=== PATIENT | female | born 1945 | race Caucasian/White ===

== ENCOUNTER 2023-06-29 10:37 | Emergency (ER) | payer MEDICARE, OTHER, SELFPAY ==
[2023-06-29 11:03] VITALS: BP 157/98
[2023-06-29 12:53] VITALS: BP 111/97
[2023-06-29 13:04] LABS: % Basophils 0.5 % (0-2); % Immature Granulocytes 0.2 % (0-0.5); % Monocytes 5.9 % (1.7-9.3); % Neutrophils 56.4 % (42.2-75.2); Absolute Eosinophils 0.1 10^3/uL (0-0.7); Absolute Lymphocytes 2.3 10^3/uL (1.2-3.4); Absolute Monocytes 0.4 10^3/uL (0.1-0.6); Absolute Neutrophils 3.7 10^3/uL (1.4-6.5); Hematocrit 41.2 % (37.0-47.0); Hemoglobin 14.2 g/dL (12.0-16.0); Mean Corp Hgb Conc. 34.5 g/dL (33.0-37.0); Mean Corpuscular Hgb 28.8 pg (27.0-31.0); Mean Corpuscular Volume 83.6 fL (81.0-99.0); Mean Platelet Volume 9.1 fL (7.4-10.4); Nucleated Red Blood Cells % 0 %; Platelet Count 270 10^3/uL (130-400); Red Blood Cell Count 4.93 10^6/uL (4.20-5.40); Red Cell Dist. Width 13.8 % (11.5-14.5); White Blood Cell Count 6.6 10^3/uL (4.8-10.8)
[2023-06-29 13:18] LABS: D-Dimer 0.38 ug/mlFEU (0.00-0.50)
[2023-06-29] MEDS: DUONEB 3 ML INH (13:53)
[2023-06-29 13:59] VITALS: BP 138/76
[2023-06-29 14:00] VITALS: BP 138/81
--- NOTE | 2023-06-29 14:09 | ED.GENMED ---
History of Present Illness
General
Chief Complaint: Breathing Problem
Source: patient
Exam Limitations: none
Time Seen by Provider: 06/29/23 11:37
Nursing documentation reviewed up to this point in time: agreed with
Travel History
Have you had any contact with someone who has COVID-19?: No
Do you have any symptoms of coronavirus? Fever > 100 degrees, chills, cough, shortness of breath, sore throat, loss of taste or smell, muscle aches, or headache?: No
History of Present Illness
History of Present Illness:
pt is a 77 y/o F with h/o heart murmur, HLD, asthma
here with cough/congestion - from urgent care
apparently 1 mo ago started with righ tear pain/pressure and sinus congestion that she saw her PCP for. she was prescribed 10 days amoxicillin tid which she took
she was given a refill 'for if the symptoms lingered' so she continued another 14 days and she is almost done
she says that she has [facility] an dfeels a little wheezy
she has used her albuterol inhaler in addition to her advair. pt says at 2 am she was woken up by a feeling of discomfort in between her shoulder blades. she took motrin and used he inhaler and got up and got some water and was able to get back
to sleep. when she woke up today she thought she should go to urgent care.
pt was sent here for eval from urgent care for her sob.
pt says she doesn't feel SOB at rest and has not had any pleurtic pain, syncope, exertional cp, vomiting, diarrhea, fever, chills.
she has a dry cough, no mucus
nonsmoker
Past History
Past History
ED Past Medical History: Other (Asthma, GERD, hyperlipidemia, hypothyroidism on replacement previous skin cancer with resection,)
Social History
Tobacco: Non-smoker
Alcohol: None
Family History
Family History: Early CAD and Other (Mother with bladder cancer, brother with heart transplant)
Review of Systems
Review of Systems
Allergies reviewed?: Yes
All Other Systems: Not applicable
Phy Exam
Physical Exam
Physical Exam:
GENERAL: Alert , in no apparent distress
EYE: pupils equal and reactive
NECK: Supple
ENT: o/p clr, mmm.
CARDIAC: Regular rate and rhythm .+ murmur systolic no edema
LUNGS: moving good air, no tachypnea, occ cough, slight end exp wheezing;
ABDOMEN: Soft, without focal tenderness, no r/g, no cvat, normal bowel sounds
NEUROLOGICAL: Alert and oriented, no focal neuro deficits
SKIN: Warm and dry, skin intact.
MUSCULOSKELETAL: No edema, well perfused. neg brian's sign
PSYCH: Normal and appropriate interaction.
Scores
Heart Failure Risk
Heart Failure Risk Score: Not Applicable
Course
Orders/Labs/Results
Orders:
Orders
06/29/23 12:17
Electrocardiogram (*1) Urgent
Reason for Study: Shortness of Breath
EKG- Treatment ONCE
06/29/23 12:35
Cardiac Monitoring- Treatment ONCE
Ipratropium/Albuterol Sulfate [Duoneb] 3 ml INH R NOW ONE
CR Chest - 2 Views Urgent
Comment:
Reason For Exam: cough, back pain, sob
06/29/23 12:53
Complete Blood Count/With Diff Urgent
D-Dimer Urgent
06/29/23 14:01
Comprehensive Metabolic Panel Urgent
NT-proBNP Urgent
Troponin I Urgent
Abnormal Lab Results
06/29/23
14:01
Glucose 102 H mg/dl
(70-99)
06/29/23 12:53
06/29/23 14:01
Vital Signs
Initial and Last Documented VS:
Initial Vital Signs
Temp Pulse Resp BP Pulse Ox
98.6 F 110 18 157/98 96
06/29/23 11:03 06/29/23 11:03 06/29/23 11:03 06/29/23 11:03 06/29/23 11:03
Last Documented Vital Signs
Temp Pulse Resp BP Pulse Ox
98.6 F 75 19 123/85 94
06/29/23 11:03 06/29/23 13:59 06/29/23 13:59 06/29/23 15:13 06/29/23 15:15
MDM/Problems Addressed
Differential Diagnosis Includes:
asthma exac, bronchitis, chf, PE, pna
MDM/Problems Addressed:
77 y/o F with ongoin gsinus congestion and now with cough, despite nearly 1 mo of amox
sent by urgent care for her c/o SOB and wheezing
has been using inahler without relief
no fever/chills, chest pain
w/u here cxr independently reviewed by me and no PNA
pt's sypmtoms improved after nebs and steroids
she was sent home with a home neb machine
acute exac of asthma was stabilized for d/c
return precautions.
*Critical Care Note
Total Time (30-74mins, 75-104mins- exclusive of procedures): Not Applicable
ED Attending Note
-
Portions of this chart may have been created with voice recognition software.� Occasional wrong word or��sound alike� substitutions may have occurred due to the inherent limitations of voice recognition software.
Discharge Plan
Departure
Patient Disposition: Home (Routine Discharge)
Date of Disposition: 06/29/23
Time of Disposition: 14:50
Patient with high blood pressure during this ER visit?: No
Condition: Fair
Covid-19: Not Applicable
Discharge Problem:
Asthma, Acute bronchitis
Instructions: Asthma, Adult (DC), Acute Bronchitis, Adult (DC)
Prescriptions:
New
albuterol sulfate 2.5 mg /3 mL (0.083 %) solution for nebulization
2.5 mg inhalation QID PRN (Reason: shortness of breath or wheezing) Qty: 75 0RF
methylprednisolone [Medrol (Vahe)] 4 mg tablets,dose pack
See Rx Instructions .ROUTE .COMPLEX Qty: 21 0RF
Rx Instructions:
for 6 days
No Action
Albuterol
inhalation PRN PRN (Reason: rescue)
Patient Comments:
3-4 days ago
atorvastatin 40 MG tablet
40 mg PO DAILY
levothyroxine [Synthroid] 25 MCG tablet
25 mcg PO DAILY
esomeprazole magnesium [Nexium] 40 MG capsule,delayed release(DR/EC)
40 mg PO DAILY
fluticasone propion-salmeterol 1 DISK blister with device
1 puff inhalation BID
fluticasone propionate 16 GRAM spray,suspension
2 spray intranasal DAILY
ew-bjx-KL-Mp-Lw-znahipf-lutein 1 EACH tablet
1 tab PO DAILY
omega-3 fatty acids-fish oil [Fish Oil] 1,000 MG capsule
1,200 mg PO DAILY
amoxicillin 500 MG capsule
500 mg PO Q8H Qty: 21 0RF
Referrals:
Kiya Simms PA [Family Provider] - Follow up in 2-3 days
Activity Restrictions/Additional Instructions:
WE DO NOT SEE ANY CAUSE FOR EMERGENCY FOR YOUR SYPMTOMS
YOU COULD JUST HAVE A FLARE UP OF YOUR ASTHMA
YOU SHOULD SEE A ANODE MACHINE OPERATOR AND AN ENT FOR YOUR ONGOING SYMPTOMS
TRY ALBUTEROL NEBULIZER EVERY 6 HOURS NEEDED FOR WHEEZING/COUGH (DO NOT USE YOUR ALBUTEROL INHALER WHILE USING THE NEBULIZER). YOU CAN CONTINUE THE ADVAIR
STARTING TOMORROW MORNING TRY TAKING THE MEDROL DOSE VAHE PRESCRIBED
THIS IS A STEROID TAPER. IT SHOULD HELP WITH YOUR CONGESTION AND YOUR LUGNS.
FOLLOW UP WITH [facility] FAMILY DOCTOR THIS WEEK
RETURN FOR: WORSENING CHEST PAIN, SHORTNESS OF BREATH, PASSING OUT, HIGH FEVER, VOMITING OR ANY CONCERNS.
Interventions
Interventions:
*Risk Screen - Suicide Last Done: 06/29/23 12:39
*General Assessment Last Done: 06/29/23 12:39
*Neglect/Abuse Screening Last Done: 06/29/23 12:39
ED- Fall Risk Assessment Last Done: 06/29/23 15:23
*ED COVID-19 Vaccine History Last Done: 06/29/23 11:03
*Nursing Disposition Last Done: 06/29/23 15:23
ED- Cardiac Assessment Last Done: 06/29/23 12:39
ED- Pulmonary Assessment Last Done: 06/29/23 12:39
Discharge Date and Time
Discharge Date/Time: 06/29/23 15:24
[2023-06-29 14:25] LABS: ALT (SGPT) 29 U/L (0-35); AST (SGOT) 29 U/L (14-36); Albumin 3.9 g/dl (3.5-5.0); Alkaline Phosphatase 55 U/L (38-126); Blood Urea Nitrogen 13 mg/dl (7-17); Calcium 9.2 mg/dl (8.4-10.2); Carbon Dioxide 29 mmol/L (22-30); Chloride 101 mmol/L (98-107); Glucose 102 mg/dl (70-99); Potassium 4.5 mmol/L (3.5-5.1); Sodium 138 mmol/L (135-145); Total Bilirubin 0.8 mg/dl (0.2-1.3); Total Protein 6.9 g/dl (6.3-8.2); eGFR > 60.00
[2023-06-29 14:35] LABS: NT-proBNP < 20.0 pg/ml; Troponin I < 0.012 ng/ml
[2023-06-29 15:00] VITALS: BP 140/83
[2023-06-29 15:13] VITALS: BP 123/85
== END 2023-06-29 15:24 | disposition home or self-care (01) ==
LOC: EMR 10:37
PROVIDERS: Physician Assistant; EMERGENCY PHYSICIAN Emergency Medicine; FAMILY PHYSICIAN Physician Assistant
DX: J45.909 Unspecified asthma, uncomplicated (principal); R01.1 Cardiac murmur, unspecified; E78.00 Pure hypercholesterolemia, unspecified; K21.9 Gastro-esophageal reflux disease without esophagitis; E03.9 Hypothyroidism, unspecified
CPT/HCPCS: 99283; 94640; 71046; 80053; 83880; 84484; 85025; 85379; 93005

== ENCOUNTER → 2023-07-14 13:28 | Outpatient (REF) | payer MEDICARE, OTHER, SELFPAY | LOC: WDC 13:28 | PROVIDERS: ATTENDING PHYSICIAN Physician Assistant | DX: Z12.31 Encounter for screening mammogram for malignant neoplasm of breast (principal) | CPT/HCPCS: 77063; 77067 ==

== ENCOUNTER → 2023-08-11 08:38 | Outpatient (REF) | payer MEDICARE, OTHER, SELFPAY ==
[2023-08-11 09:44] LABS: % Basophils 0.6 % (0-2); % Eosinophils 2.9 % (0-6); % Immature Granulocytes 0.2 % (0-0.5); % Lymphocytes 36.8 % (20.5-51.1); % Monocytes 6.7 % (1.7-9.3); % Neutrophils 52.8 % (42.2-75.2); Absolute Basophils 0.1 10^3/uL (0-0.2); Absolute Eosinophils 0.2 10^3/uL (0-0.7); Absolute Monocytes 0.6 10^3/uL (0.1-0.6); Absolute Neutrophils 4.4 10^3/uL (1.4-6.5); Hematocrit 40.5 % (37.0-47.0); Hemoglobin 13.8 g/dL (12.0-16.0); Mean Corp Hgb Conc. 34.1 g/dL (33.0-37.0); Mean Corpuscular Hgb 28.7 pg (27.0-31.0); Mean Corpuscular Volume 84.2 fL (81.0-99.0); Mean Platelet Volume 9.3 fL (7.4-10.4); Nucleated Red Blood Cells % 0 %; Platelet Count 274 10^3/uL (130-400); Red Blood Cell Count 4.81 10^6/uL (4.20-5.40); Red Cell Dist. Width 14.2 % (11.5-14.5); White Blood Cell Count 8.3 10^3/uL (4.8-10.8)
[2023-08-11 10:15] LABS: ALT (SGPT) 28 U/L (0-35); AST (SGOT) 30 U/L (14-36); Albumin 4.7 g/dl (3.5-5.0); Alkaline Phosphatase 56 U/L (38-126); Blood Urea Nitrogen 13 mg/dl (7-17); Calcium 9.7 mg/dl (8.4-10.2); Carbon Dioxide 26 mmol/L (22-30); Chloride 101 mmol/L (98-107); Glucose 127 mg/dl (70-99); HDL Cholesterol 59 mg/dl; LDL Cholesterol, Calculated 136 mg/dl; Potassium 4.4 mmol/L (3.5-5.1); Sodium 140 mmol/L (135-145); Total Bilirubin 0.7 mg/dl (0.2-1.3); Total Cholesterol 231 mg/dl (50-199); Total Protein 7.6 g/dl (6.3-8.2); Triglyceride 180 mg/dl (10-149); Very Low Density Lipoprotein 36 mg/dl (0-30); eGFR > 60.00
[2023-08-11 10:31] LABS: Vitamin D, 25-OH*** 43.3 ng/mL (30-80)
[2023-08-11 10:45] LABS: TSH Reflex To Free T4 2.64 uIU/ml (0.47-4.68)
[2023-08-11 12:16] LABS: Glycohemoglobin (HgbA1c) 6.1 % (4.0-5.6)
== END ==
LOC: REG 08:38
PROVIDERS: ATTENDING PHYSICIAN Physician Assistant; FAMILY PHYSICIAN Internal Medicine Rheumatology
DX: Z00.00 Encounter for general adult medical examination without abnormal findings (principal); H69.93 Unspecified Eustachian tube disorder, bilateral; H60.391 Other infective otitis externa, right ear; J45.40 Moderate persistent asthma, uncomplicated; E03.9 Hypothyroidism, unspecified; M81.0 Age-related osteoporosis without current pathological fracture; E78.2 Mixed hyperlipidemia; E55.9 Vitamin D deficiency, unspecified; R82.994 Hypercalciuria; Z79.899 Other long term (current) drug therapy; R73.9 Hyperglycemia, unspecified
CPT/HCPCS: 36415; 80053; 80061; 82306; 83036; 84443; 85025

== ENCOUNTER → 2023-08-13 09:15 | Outpatient (REF) | payer MEDICARE, OTHER, SELFPAY ==
[2023-08-13 11:52] LABS: 24 Hour Urine Total Volume 1900 ml
== END ==
LOC: REG 09:15
PROVIDERS: ATTENDING PHYSICIAN Internal Medicine Rheumatology; FAMILY PHYSICIAN Physician Assistant
DX: E55.9 Vitamin D deficiency, unspecified (principal); M81.0 Age-related osteoporosis without current pathological fracture; R82.994 Hypercalciuria
CPT/HCPCS: 81050; 82340

== ENCOUNTER → 2024-01-23 11:04 | Outpatient (REF) | payer MEDICARE, OTHER, SELFPAY | LOC: RAD 11:04 | PROVIDERS: ATTENDING PHYSICIAN Internal Medicine Rheumatology; FAMILY PHYSICIAN Physician Assistant | DX: Z13.820 Encounter for screening for osteoporosis (principal); M81.0 Age-related osteoporosis without current pathological fracture | CPT/HCPCS: 77080 ==

== ENCOUNTER → 2024-01-27 09:07 | Outpatient (REF) | payer MEDICARE, OTHER, SELFPAY ==
[2024-01-27 10:55] LABS: ALT (SGPT) 40 U/L (0-35); AST (SGOT) 39 U/L (14-36); Albumin 4.8 g/dl (3.5-5.0); Alkaline Phosphatase 51 U/L (38-126); Blood Urea Nitrogen 15 mg/dl (7-17); Calcium 9.7 mg/dl (8.4-10.2); Carbon Dioxide 27 mmol/L (22-30); Chloride 100 mmol/L (98-107); Glucose 113 mg/dl (70-99); HDL Cholesterol 53 mg/dl; LDL Cholesterol, Calculated 232 mg/dl; Potassium 4.8 mmol/L (3.5-5.1); Sodium 141 mmol/L (135-145); Total Bilirubin 0.7 mg/dl (0.2-1.3); Total Cholesterol 323 mg/dl (50-199); Total Protein 7.6 g/dl (6.3-8.2); Triglyceride 190 mg/dl (10-149); Very Low Density Lipoprotein 38 mg/dl (0-30); eGFR > 60.00
[2024-01-27 11:10] LABS: Vitamin D, 25-OH*** 49.5 ng/mL (30-80)
[2024-01-27 11:14] LABS: Glycohemoglobin (HgbA1c) 5.9 % (4.0-5.6)
[2024-01-27 11:24] LABS: TSH Reflex To Free T4 2.85 uIU/ml (0.47-4.68)
== END ==
LOC: REG 09:07
PROVIDERS: ATTENDING PHYSICIAN Internal Medicine Rheumatology; FAMILY PHYSICIAN Physician Assistant; REFERRING PHYSICIAN Obstetrics & Gynecology Gynecology
DX: E55.9 Vitamin D deficiency, unspecified (principal); M81.0 Age-related osteoporosis without current pathological fracture; Z79.899 Other long term (current) drug therapy; E78.2 Mixed hyperlipidemia; R73.9 Hyperglycemia, unspecified; J45.40 Moderate persistent asthma, uncomplicated
CPT/HCPCS: 36415; 80053; 80061; 82306; 83036; 84443

== ENCOUNTER → 2024-03-03 16:00 | Outpatient (REF) | payer MEDICARE, OTHER, SELFPAY | LOC: RCS 16:00 | PROVIDERS: ATTENDING PHYSICIAN Physician Assistant | DX: R01.1 Cardiac murmur, unspecified (principal) | CPT/HCPCS: 93306 ==

== ENCOUNTER → 2024-07-07 07:53 | Outpatient (REF) | payer MEDICARE, OTHER, SELFPAY ==
[2024-07-07 10:44] LABS: ALT (SGPT) 19 U/L (0-35); AST (SGOT) 22 U/L (14-36); Albumin 4.5 g/dl (3.5-5.0); Alkaline Phosphatase 58 U/L (38-126); Blood Urea Nitrogen 15 mg/dl (7-17); Calcium 9.9 mg/dl (8.4-10.2); Carbon Dioxide 31 mmol/L (22-30); Chloride 101 mmol/L (98-107); Glucose 117 mg/dl (70-99); HDL Cholesterol 54 mg/dl; LDL Cholesterol, Calculated 114 mg/dl; Potassium 4.8 mmol/L (3.5-5.1); Sodium 139 mmol/L (135-145); Total Bilirubin 0.6 mg/dl (0.2-1.3); Total Cholesterol 204 mg/dl (50-199); Total Protein 7.5 g/dl (6.3-8.2); Triglyceride 184 mg/dl (10-149); Very Low Density Lipoprotein 36 mg/dl (0-30); eGFR > 60.00
== END ==
LOC: REG 07:53
PROVIDERS: ATTENDING PHYSICIAN Physician Assistant
DX: E78.2 Mixed hyperlipidemia (principal)
CPT/HCPCS: 36415; 80053; 80061

== ENCOUNTER → 2024-07-12 07:33 | Outpatient (REF) | payer MEDICARE, OTHER, SELFPAY ==
[2024-07-12] MEDS: LEXISCAN 0.4 MG IV (09:41)
== END ==
LOC: RCS 07:33
PROVIDERS: ATTENDING PHYSICIAN Internal Medicine; FAMILY PHYSICIAN Physician Assistant
DX: R06.02 Shortness of breath (principal)
CPT/HCPCS: 78452; 93017; A9500; J2785

== ENCOUNTER 2024-09-10 01:26 | Inpatient (IN) | payer MEDICARE, OTHER, SELFPAY ==
[2024-09-09 17:54] VITALS: BP 135/79
[2024-09-09 20:00] VITALS: BP 144/77
[2024-09-09] MEDS: OMNIPAQUE 50 ML PO (20:31)
[2024-09-09 20:36] VITALS: BMI 28.3
--- NOTE | 2024-09-09 20:42 | ED.GENMED ---
History of Present Illness
General
Chief Complaint: Abnormal Lab Value
Time Seen by Provider: 09/09/24 19:40
History of Present Illness
History of Present Illness:
78-year-old female with history of hyperlipidemia, hypertension presenting to the emergency department for jaundice and abnormal outpatient labs. Patient reports last week she was having abdominal discomfort with ultimate suspicion for colitis.
Notes that she has had colitis in the past. She also then had a dental infection, was prescribed antibiotics. On Friday, 4 days ago she was having increased generalized abdominal pain, now constipation. Few days ago, she noticed that her skin was
yellowing and her eyes were yellow. She followed up with her doctor who blood work, noted to be abnormal with elevated liver enzymes, lipase, T. bili. She reports some mild abdominal discomfort. Denies vomiting, does note some nausea. Denies
chest pain or difficulty breathing. Denies fever. Denies any history abdominal surgeries in the past. Denies additional acute medical complaints
Past History
Past History
ED Past Medical History: Other (Asthma, GERD, hyperlipidemia, hypothyroidism on replacement previous skin cancer with resection,)
Social History
Tobacco: Non-smoker
Alcohol: None
Family History
Family History: Early CAD and Other (Mother with bladder cancer, brother with heart transplant)
Phy Exam
Physical Exam
Physical Exam:
General: Well-appearing, no clinical signs of dehydration, nontoxic and in no acute distress
HEENT: protecting airway, scleral icterus
Neck: appears supple
CV: Normal heart rate, regular rhythm
Resp: No accessory muscle use, no increased work of breathing
Abd: Soft and non-distended, very mild generalized nonfocal tenderness, no rebound or guarding
Extremities: No deformities, no swelling
Neuro: alert, no focal neurologic deficit
: deferred
Rectal: deferred
Psych: Normal affect
Skin: Jaundice
Course
Orders/Labs/Results
Orders:
Orders
09/09/24 17:58
Electrocardiogram (*1) Urgent
Reason for Study: Fatigue / Weakness
09/09/24 17:59
EKG- Treatment ONCE
09/09/24 20:00
Iohexol [Omnipaque] See Protocol PO NOW STA
09/09/24 20:01
CT Abd/pel W Iv And Oral Contr Urgent
Comment:
Reason For Exam: jaundice, elevated liver enzymes and lipase
09/09/24 20:34
Acetaminophen Urgent
Hepatitis A IgM Antibody Urgent
Hepatitis B Core Ab, IgM Urgent
Hepatitis B Surface Antibody Urgent
Hepatitis B Surface Antigen Urgent
Hepatitis C Antibody Urgent
Urinalysis Reflex To Culture Urgent
Date Specimen was Collected: 09/09/24
Time Specimen was Collected: 20:29
Urine Microscopic Reflex Cult Urgent
Urine Culture Urgent
KELY Source: U
Specimen Description:
Date Specimen was Collected: 09/09/24
Time Specimen was Collected: 20:29
Abnormal Lab Results
09/09/24
20:34
Ur Occult Blood Reflex 2+ A
(Negative)
Urine Nitrite (Reflex) Positive A
(Negative)
Urine Bilirubin 3+ A
(Negative)
Urine Urobilinogen 2+ A
(Neg - 1+)
Leukocyte Esterase Rfl 3+ A
(Negative)
Urine RBC 11-15 A /HPF
(0-2)
Urine WBC (Reflex) 50-60 A /HPF
(0-5)
Urine Bacteria (Reflex) Moderate A
(Negative)
Urine Albumin (Reflex) 2+ A
(Neg - Trace)
Acetaminophen < 10 L ug/ml
(10-30)
Vital Signs
Initial and Last Documented VS:
Initial Vital Signs
Temp Pulse Resp BP Pulse Ox
98.7 F 113 18 135/79 96
09/09/24 17:54 09/09/24 17:54 09/09/24 17:54 09/09/24 17:54 09/09/24 17:54
Last Documented Vital Signs
Temp Pulse Resp BP Pulse Ox
98.1 F 79 21 142/80 95
09/09/24 21:52 09/09/24 23:22 09/09/24 23:22 09/09/24 22:00 09/09/24 22:30
MDM/Problems Addressed
MDM/Problems Addressed:
78-year-old female presenting to the emergency department with outpatient abnormal laboratory analysis with elevated liver enzymes, lipase, T. bili. Vital arrival are normal.
On exam, patient is resting comfortably, no acute distress. Patient reports she had colitis over a week ago and is now having these findings. Labs reviewed, transaminitis, T. bili of 9 and elevated lipase. Very minimal tenderness to the abdomen.
Ultimately suspect possible viral hepatitis versus biliary pathology versus gallstone pancreatitis versus pancreatic cancer. Plan for CT abdominal imaging. Patient denying any acetaminophen usage. Will send hepatitis panel and Tylenol level.
00:10 -CT shows concern for mass at the head of the pancreas, indicating likely pancreatic adenocarcinoma. There is intrahepatic and extrahepatic biliary ductal obstruction. This reason feel patient warrants admission for GI consultation,
additional imaging and likely oncology follow-up.
*EKG
Interpreted by ED Provider?: Yes
EKG Intrepretation Date: 09/09/24
EKG Intrepretation Time: 20:45
*Critical Care Note
Total Time (30-74mins, 75-104mins- exclusive of procedures): Not Applicable
ED Attending Note
-
Portions of this chart may have been created with voice recognition software.� Occasional wrong word or��sound alike� substitutions may have occurred due to the inherent limitations of voice recognition software.
Discharge Plan
Departure
Prescriptions:
No Action
sabgdmgm-yuwvmqcl-UT Drops,Suspension
4 drp OTIC (EAR) TIDPRN PRN (Reason: allergies)
omeprazole 40 mg Capsule,Delayed Release(Dr/Ec)
40 mg PO DAILY
levothyroxine [Synthroid] 50 mcg Tablet
50 mcg PO DAILY
losartan 25 mg Tablet
25 mg PO DAILY
rosuvastatin [Crestor] 40 mg Tablet
40 mg PO QPM
Theragen Tablet
1 tab PO DAILY
fluticasone propion-salmeterol [Advair Diskus] 100-50 mcg/dose Blister With Device
1 inh INHALATION R BID
albuterol sulfate [ProAir HFA] 90 mcg/actuation Hfa Aerosol Inhaler
2 puff INHALATION R Q6HPRN PRN (Reason: sob)
cholecalciferol (vitamin D3) [Vitamin D3] 25 mcg (1,000 unit) Tablet
25 mcg PO DAILY
coQ10 (ubiquinol) 100 mg Capsule
100 mg PO DAILY
albuterol sulfate 2.5 mg /3 mL (0.083 %) Solution For Nebulization
2.5 mg INHALATION R Q4HPRN PRN (Reason: sob)
Referrals:
Kiya Simms PA [Family Provider] -
Interventions
Interventions:
*Risk Screen - Suicide Last Done: 09/09/24 17:54
*General Assessment Last Done: 09/09/24 17:54
*Neglect/Abuse Screening Last Done: 09/09/24 17:54
*ED- Fall Risk Assessment Last Done: 09/09/24 19:45
*ED COVID-19 Vaccine History Last Done: 09/09/24 19:45
Discharge Date and Time
Print Language: TURKMEN
[2024-09-09 20:45] LABS: Urine Albumin 2+ (Neg - Trace); Urine Bilirubin 3+ (Negative); Urine Character Clear (Clear); Urine Color Yellow; Urine Glucose Negative (Negative); Urine Ketone Negative (Negative); Urine Leukocyte 3+ (Negative); Urine Nitrite Positive (Negative); Urine Occult Blood 2+ (Negative); Urine Specific Gravity 1.015 (<1.030); Urine Urobilinogen 2+ (Neg - 1+)
[2024-09-09 21:00] VITALS: BP 163/81
[2024-09-09 21:05] LABS: Acetaminophen < 10 ug/ml (10-30)
[2024-09-09 21:10] LABS: Urine Bacteria Moderate (Negative); Urine Calcium Oxalate Crystals Present; Urine White Cell 50-60 /HPF (0-5)
[2024-09-09 21:39] LABS: Hepatitis B Surface Antigen Negative (Negative)
[2024-09-09 21:43] LABS: Hepatitis A IgM Antibody Negative (Negative); Hepatitis B Core Ab, IgM Negative (Negative)
[2024-09-09 21:56] LABS: Hepatitis B Surface Antibody Negative; Hepatitis C Antibody Negative (Negative)
[2024-09-09 22:00] VITALS: BP 142/80
--- NOTE | 2024-09-10 01:03 | HPS.HSE ---
Family Physician
-
Family Physician: BERNY Teague
Chief Complaint
-
Jaundice
History of Present Illness
Patient is a 78y F with PMH significant for hypertension, hypothyroidism and asthma who presents to ED for evaluation of jaundice and abnormal labs. Patient states that she developed a bout of 'colitis' about one week ago. She describes this as
crampy lower abdominal pain and mild nausea without emesis. She has loose, white-colored stools. Patient states that she had symptoms for about 2 days and they have since improved. She did not seek medical attention at that time. Patient notes
that she has had similar symptoms occasionally in the past and they typically resolve without intervention.
Patient notes that she has had intermittent upper abdominal discomfort and mid-back discomfort for the past several days.
She has had continued nausea though her stools have returned to normal.
Patient noted that she was very itchy and she noted that her eyes and skin appeared somewhat yellow.
She contacted her PCP and had labs done earlier today. She was called this evening and advised to present to the ED.
In the ED, patient continues to complain of nausea and upper abdominal discomfort.
Medical History
Past Medical History
Past Medical History: Reports Other
Additional Past Medical History:
Hypothyroidism
Asthma
GERD
Hypertension
Mild Aortic Stenosis
Osteoporosis
Non-Melanoma Skin Cancer
Past Surgical History: Reports Other
Additional Past Surgical History:
Tubal Ligation
Skin Cancer Excision
Social History
Tobacco: Non-smoker
Alcohol: None
Drug: None
Family History
Family History: Other (Mother: CAD, COPD Father: Aortic Aneurysm Sister: Aortic Aneurysm Brother: Pancreatic Cancer Brother: Throat Cancer)
Allergies / Home Medications
Allergies reflects when Allergies were last updated in [employer].
Home Medications with original date entered in [employer]
Allergy/Medication List:
Allergies
Allergy/AdvReac Type Severity Reaction Status Date / Time
cats, dogs, grass, trees, Allergy Pharmacy Uncoded 09/09/24 17:53
etc. to Review
Home Medications
albuterol sulfate 2.5 mg/3 mL (0.083 %) solution for nebulization 2.5 mg inhalation R Q4HPRN PRN sob 09/09/24
albuterol sulfate 90 mcg/actuation aerosol inhaler 2 puff inhalation R Q6HPRN PRN sob 09/09/24
cholecalciferol (vitamin D3) 25 mcg (1,000 unit) tablet (Vitamin D3) 25 mcg PO DAILY 09/09/24
coQ10 (ubiquinol) 100 mg capsule 100 mg PO DAILY 09/09/24
fluticasone 100 mcg-salmeterol 50 mcg/dose blistr powdr for inhalation (Advair Diskus) 1 inh inhalation R BID 09/09/24
levothyroxine 50 mcg tablet (Synthroid) 50 mcg PO DAILY 09/09/24
losartan 25 mg tablet 25 mg PO DAILY 09/09/24
oqsqmses-lhrvnmpx-SV ear drops,suspension 4 drp otic (ear) TIDPRN PRN allergies 09/09/24
omeprazole 40 mg capsule,delayed release 40 mg PO DAILY 09/09/24
rosuvastatin 40 mg tablet (Crestor) 40 mg PO QPM 09/09/24
therapeutic multivitamin 1 tab PO DAILY 09/09/24
Review of Systems
-
History Source: Patient
A 12 point ROS was completed and negative except as noted: Yes
Constitutional: Reports Weight Loss and Fatigue; Denies Fever or Chills
EENT: Denies Sore Throat
Respiratory: Denies Cough or Trouble Breathing
Cardiac: Denies Chest Pain or Palpitations
Abdomen/GI: Reports Abdominal Pain, Nausea and Anorexia; Denies Vomiting, Diarrhea, Constipated, Bloody Stools or Black Stools
: Denies Dysuria or Frequency
Musculoskeletal: Reports Other (Back Pain); Denies Joint Pain or Edema
Neurological: Denies Dizzy or Headache
Psych: Denies Depression or Anxiety
Physical Exam
Vital Signs
Vital Signs
Temp Pulse Resp BP Pulse Ox
98.1 F 79 21 142/80 95
09/09/24 21:52 09/09/24 23:22 09/09/24 23:22 09/09/24 22:00 09/09/24 22:30
Physical Exam
General: Other (78y F in no acute distress. Grossly jaundiced.)
HEENT: Other (Scleral icterus. MMM.)
Respiratory: Clear; No Wheezes, Rales or Rhonchi
Cardiac: S1/S2, Regular Rhythm and Murmur (II/ EHSAN)
GI: Soft, Non Distended, Normal Bowel Sounds and Other (Pos upper abdominal tenderness without rebound / guarding.)
Musculoskeletal: No Clubbing, No Cyanosis and No Edema
Neuro: AO x 3
Impression/Plan
-
A/P: Patient is a 78y F with PMH significant for asthma and GERD who presents to ED for evaluation of gross jaundice and abnormal labs.
Pancreatic Mass
Jaundice
Abnormal LFTs
- Admit for further evaluation and treatment.
- CT done in the ED this evening shows 2.5cm pancreatic head mass with associated ductal dilation. Possible hepatic lesions and adenopathy.
- GI and Oncology evaluations.
- Check tumor markers for baseline.
- Supportive care / symptom control for pain and nausea.
- Follow for any new / worsening symptoms.
Benign Hypertension
- Stable. Continue losartan.
Hypothyroidism
- Stable. Continue current T4 replacement.
Moderate Persistent Asthma without Acute Exacerbation
- Stable. Albuterol nebs PRN.
DVT Prophylaxis: SCDs
Code Status: Full
[2024-09-10] MEDS: DILAUDID 0.5 MG IV (01:32)
[2024-09-10] MEDS: ZOFRAN 4 MG IV (01:32)
[2024-09-10 02:14] VITALS: BP 116/86; BMI 27.1
--- NOTE | 2024-09-10 03:04 | PTCARENOTE ---
Pt walked to room from stretcher upon arrival to unit. On arrival to unit Pt 98% on 4L of O2. Pt weaned down to 2L O2, sating 95%. Pt AAOx3, VSS, no current c/o pain. Pt is oriented to room. Call carey is within reach. Plan of care ongoing.
[2024-09-10 06:00] VITALS: BMI 27.1
[2024-09-10] MEDS: SYNTHROID 50 MCG PO (06:11)
[2024-09-10 06:50] LABS: Mean Corp Hgb Conc. 34.3 g/dL (33.0-37.0); Mean Corpuscular Hgb 29.3 pg (27.0-31.0); Mean Corpuscular Volume 85.6 fL (81.0-99.0); Mean Platelet Volume 9.8 fL (7.4-10.4); Platelet Count 289 10^3/uL (130-400); Red Blood Cell Count 4.09 10^6/uL (4.20-5.40); Red Cell Dist. Width 14.6 % (11.5-14.5)
[2024-09-10] MEDS: ADVAIR HFA 45/21 MCG INHALER 2 PUFF INH ×2 (07:27→20:12)
--- NOTE | 2024-09-10 07:58 | W.PN.HOSP.TC ---
Today's Communication/Plan
-
Possible IR biopsy of liver lesions today
EUS/FNA/ERCP for stenting -- Dr. Phillips of GI would like to keep patient here until that procedure is done early next week
Assessment / Plan
Assessment / Plan
Physical Exam
General: Not in acute distress. Grossly jaundiced.
HEENT: Scleral icterus. Moist mucosal membranes.
Respiratory: Clear to Auscultation Bilaterally
Cardiac: S1/S2, Regular Rhythm and Murmur (II/ EHSAN)
GI: Soft, Non Distended, Normal Bowel Sounds and Other (Pos upper abdominal tenderness without rebound / guarding.)
Musculoskeletal: No Cyanosis and No Edema
Neuro: AAO x 3
Assessment/Plan
78 y/o female with past medical history significant for hypertension, hypothyroidism, GERD and asthma who presents to ED for evaluation of jaundice and abnormal labs. Patient stated that she developed a bout of 'colitis' about one week prior.
She described this as crampy lower abdominal pain and mild nausea without emesis; she had loose, white-colored stools -- patient stated that she had symptoms for about 2 days and symptoms have since improved. She did not seek medical attention at
that time. Patient noted that she has had similar symptoms occasionally in the past and they typically resolve without intervention.
Patient noted that she has had intermittent upper abdominal discomfort and mid-back discomfort for the several days prior to presentation; she has had continued nausea though her stools have returned to normal.
Patient noted that she was very itchy and she noted that her eyes and skin appeared somewhat yellow.
She contacted her PCP and had labs done earlier today, whose office sent patient to the emergency department.
In the ED, patient continues to complain of nausea and upper abdominal discomfort.
Pancreatic Mass
Jaundice
Abnormal LFTs
- CT done in the ED this evening shows 2.5cm pancreatic head mass with associated ductal dilation. Possible hepatic lesions and adenopathy.
- GI and Oncology evaluations.
- Check tumor markers for baseline CA 19-9
- Supportive care / symptom control for pain and nausea.
- Follow for any new / worsening symptoms.
- Oncology team spoke with patient and based on their discussion with the patient, mentioned that patient now wants to be DNR/DNI status
- Patient needs biopsies of the liver mets in order to stage and diagnose the patient -- Dr. Phlilips of GI requested to keep patient here to have EUS/ERCP/FNA done early next week
Benign Hypertension
- Stable. Continue losartan.
Hypothyroidism
- Stable. Continue current T4 replacement.
Moderate Persistent Asthma without Acute Exacerbation
Wheezing on Physical Exam
- Sees Dr. Hanks outpatient
- Stable. Albuterol nebs PRN for now
- Not in respiratory distress, on room air saturating oxygen well
DVT Prophylaxis: SCDs
Code Status: DNR/DNI (as confirmed on September 11, 2023 by oncology team -- they confirmed this with the patient)
Non billable note
Anticipated Discharge: > 48 hours
Subjective/Interval History
-
Date of Service: September 10, 2024
Patient was seen and examined. She denied any new symptoms or complaints.
Objective Data
-
Labs:
Laboratory Results
09/10/24
06:05
WBC 8.0
Hgb 12.0
Hct 35.0 L
Plt Count 289
Sodium Pending
Potassium Pending
Chloride Pending
Carbon Dioxide Pending
BUN Pending
Creatinine Pending
Glucose Pending
Calcium Pending
Total Bilirubin Pending
AST Pending
ALT Pending
Alkaline Phosphatase Pending
Vital Signs:
Vital Signs
Temp Pulse Resp BP Pulse Ox
97.9 F 66 18 116/86 98
09/10/24 02:14 09/10/24 07:33 09/10/24 07:33 09/10/24 02:14 09/10/24 07:33
[2024-09-10 08:00] VITALS: BP 115/64
[2024-09-10 09:00] LABS: ALT (SGPT) 341 U/L (0-35); AST (SGOT) 221 U/L (14-36); Albumin 4.1 g/dl (3.5-5.0); Alkaline Phosphatase 303 U/L (38-126); Blood Urea Nitrogen 13 mg/dl (7-17); Calcium 9.5 mg/dl (8.4-10.2); Carbon Dioxide 25 mmol/L (22-30); Chloride 100 mmol/L (98-107); Direct Bilirubin 7.6 mg/dl (0.0-0.4); Estimated Creatinine Clearance 66 ml/min; Glucose 171 mg/dl (70-99); Potassium 4.5 mmol/L (3.5-5.1); Sodium 137 mmol/L (135-145); Total Bilirubin 9.4 mg/dl (0.2-1.3); eGFR > 60.00
[2024-09-10 09:09] LABS: TSH Reflex To Free T4 3.19 uIU/ml (0.47-4.68)
[2024-09-10] MEDS: COZAAR 25 MG PO (09:50)
[2024-09-10] MEDS: NSS (PRESERVATIVE FREE) 10 ML IV (09:51)
[2024-09-10] MEDS: PROTONIX IV 40 MG IV (09:51)
--- NOTE | 2024-09-10 10:30 | CON.ONC ---
Documented by User: Ann Limon MD, Resident 09/10/24 13:39
Consultation
-
Date Consultation Requested: 09/10/24
Date Consultation Performed: 09/10/24
Performing Provider: Dr. Limon/Dr. Leo
Impression
Impression
Pancreatic mass-- CT findings concerning for adenocarcinoma with metastatic intrahepatic lesion and adenopathy
Obstructive jaundice
CT abd/pelvis 09/09/24:
2.7 cm mass in the pancreatic head, consistent with pancreatic adenocarcinoma. Common bile duct obstruction with marked distention of intrahepatic and extrahepatic bile ducts, common bile duct measuring up to 2.5 cm. Relatively minor main pancreatic
duct distention of approximately 3.4 mm. Intrahepatic metastatic lesions. Metastatic adenopathy. Loss of fat plane between the left lateral margin of the mass the adjacent superior mesenteric vein. There is also loss of distinct margination between
the mass and the proximal portal vein which is slightly narrowed and may be partially compressed
Plan
Plan
Discussed with patient the radiology findings concerning for cancer; however will await biopsy and pathology for final diagnosis and to guide treatment options. EUS/ERCP stenting per GI; possible IR biopsy of hepatic lesion. CA 19-9 pending. She is
understanding of likely malignancy, but remains hopeful. Discussed goals of care-- she desires full treatment and DNR/DNI code status; she has 2 sons who are medical decision makers if needed. Discussed with hospitalist.
Patient History
History of Present Illness
78yo F with PMH HTN, hypothyroidism, asthma who presented to ED for abnormal outpatient labs and jaundice. She reports that she began feeling sick over Easter weekend with abdominal cramps and felt like her 'belly was on fire.' About 1 week later on
09/06, the pain became worse and had constipation. She had a BM following day that was 'white.' Over the past few days, developed yellowing skin/eyes, itchiness, nausea, back pain. During this time she was also diagnosed with a tooth abscess and
started on antibiotics outpatient. Her labs on this admission notable for abnormal LFTs with bilirubin 9.7 (previously normal in Jun 2024); CT imaging was concerning for pancreatic adenocarcinoma.
On evaluation this morning, she has no new complaints and reports improvement in her pain/nausea with the hospital medications. She is in good spirits, though anxious when discussing possibility of cancer. Prior to this, she was in her usual state
of health. She lives alone independently, enjoys puzzles and yard work; reports some exertional dyspnea and arthritis pain at baseline. Notes weight loss from 157 to 143lbs, which she attributed to norovirus in June.
Past-Medical/Surgical History
hypertension
hypothyroidism
asthma, exertional dyspnea
mild aortic stenosis
GERD
HLD
osteoarthritis
tooth abscess
tubal ligation
excision of skin cancer
Patient Medication
�Medication �Instructions �Recorded �Confirmed �Last Taken �Type
albuterol sulfate 2.5 mg/3 mL 2.5 mg inhalation R Q4HPRN PRN sob 09/09/24 09/09/24 Unknown History
(0.083 %) solution for nebulization
albuterol sulfate 90 mcg/actuation 2 puff inhalation R Q6HPRN PRN sob 09/09/24 09/09/24 Unknown History
aerosol inhaler
cholecalciferol (vitamin D3) 25 25 mcg PO DAILY 09/09/24 09/09/24 Unknown History
mcg (1,000 unit) tablet (Vitamin
D3)
coQ10 (ubiquinol) 100 mg capsule 100 mg PO DAILY 09/09/24 09/09/24 Unknown History
fluticasone 100 mcg-salmeterol 50 1 inh inhalation R BID 09/09/24 09/09/24 09/09/24 History
mcg/dose blistr powdr for
inhalation (Advair Diskus)
levothyroxine 50 mcg tablet 50 mcg PO DAILY 09/09/24 09/09/24 09/09/24 History
(Synthroid)
losartan 25 mg tablet 25 mg PO DAILY 09/09/24 09/09/24 09/09/24 History
[id number] ear 4 drp otic (ear) TIDPRN PRN 09/09/24 09/09/24 Unknown History
drops,suspension allergies
omeprazole 40 mg capsule,delayed 40 mg PO DAILY 09/09/24 09/09/24 09/09/24 History
release
rosuvastatin 40 mg tablet (Crestor) 40 mg PO QPM 09/09/24 09/09/24 09/08/24 History
therapeutic multivitamin 1 tab PO DAILY 09/09/24 09/09/24 Unknown History
Active Medications
Generic Name Dose Route Start Last Admin
Trade Name Freq PRN Reason Stop Dose Admin
Acetaminophen 650 mg 09/10/24 02:03
Acetaminophen 325 Mg Tablet PO 10/08/24 02:02
Q4HPRN PRN
Mild Pain / Temp > 101
Albuterol Sulfate 2.5 mg 09/10/24 02:03
Albuterol Nebs 2.5 Mg/3 Ml Ampul INH
R Q4HPRN PRN
SOB
Protocol
Hydromorphone HCl 0.5 mg 09/10/24 02:03
Hydromorphone 0.5 Mg/0.5 Ml Syringe IV 09/24/24 02:02
Q4HPRN PRN
Severe Pain
Levothyroxine Sodium 50 mcg 09/10/24 06:00 09/10/24 06:11
Levothyroxine 50 Mcg Tablet PO 10/08/24 05:59 50 mcg
DAILY @ 0600 DAVEY Administration
Losartan Potassium 25 mg 09/10/24 08:00 09/10/24 09:50
Losartan 25 Mg Tablet PO 10/08/24 07:59 25 mg
DAILY DAVEY Administration
Ondansetron HCl 4 mg 09/10/24 02:03
Ondansetron 4 Mg/2 Ml Vial IV 10/08/24 02:02
Q6HPRN PRN
nausea and vomiting
Pantoprazole Sodium 40 mg 09/10/24 08:00 09/10/24 09:51
Pantoprazole Sodium 40 Mg/10 Ml Vial IV 10/08/24 07:59 40 mg
DAILY DAVEY Administration
Fluticasone/Salmeterol 2 puff 09/10/24 08:00 09/10/24 07:27
Advair Hfa 45/21 Inhaler INH 10/08/24 07:59 2 puff
R BID DAVEY Administration
Sodium Chloride 0 flush 09/10/24 02:00
Sodium Chloride 0.9% (Flush) Syringe IV 10/08/24 01:59
PER PROTOCOL DAVEY
Sodium Chloride 10 ml 09/10/24 08:00 09/10/24 09:51
Sodium Chloride 0.9% (Preservative Free) 10 Ml Vial IV 10/08/24 07:59 10 ml
DAILY DAVEY Administration
Review of Systems
-
History Source: Patient
Constitutional: Reports Weight Loss; Denies Fever, Weight Gain, Night Sweats, Chills or Weakness
EENT: Reports No Symptoms
Respiratory: Reports Trouble Breathing (baseline asthma and exertional dyspnea)
Cardiac: Denies Chest Pain, Diaphoresis, Palpitations or Syncope
GI: Reports Abdominal Pain, Nausea and Other (see hpi); Denies Vomiting, Bloody Stools or Black Stools
: Denies Dysuria or Difficulty Voiding
Musculoskeletal: Reports Arthralgias
Skin: Reports Itching; Denies Rash or Sores
Neuro: Denies Dizzy, Headache or Weakness
Hematologic/Lymphatic: Reports No Symptoms
Psych: Reports No Symptoms
Physical Exam
-
General: Well Developed, Well Nourished, No Apparent Distress, Comfortable, Conversant and Other (jaundice); Negative Pain, Fever, Chills or Sweats
HEENT: Jaundice and Other (scleral icterus)
Pulmonary: Other (nonlabored breathing, able to talk in full sentences, supplemental oxygen via nasal canula)
GI: Other (abdomen soft, nontender, nondistended; no rebound/rigidity/guarding)
Neurology: Non Focal, No Lateralizing Symptoms and No Word Finding Difficulty
Skin: Warm, Dry and Jaundice
Psych: Calm, Intact Judgement/Insight and Other (mildly anxious at times, appropriate affect, cooperative)
Labs
Lab Results
WBC 8.0 10^3/uL (4.8-10.8) 09/10/24 06:05
RBC 4.09 10^6/uL (4.20-5.40) L 09/10/24 06:05
Hgb 12.0 g/dL (12.0-16.0) 09/10/24 06:05
Hct 35.0 % (37.0-47.0) L 09/10/24 06:05
MCV 85.6 fL (81.0-99.0) 09/10/24 06:05
MCH 29.3 pg (27.0-31.0) 09/10/24 06:05
MCHC 34.3 g/dL (33.0-37.0) 09/10/24 06:05
RDW 14.6 % (11.5-14.5) H 09/10/24 06:05
Plt Count 289 10^3/uL (130-400) 09/10/24 06:05
MPV 9.8 fL (7.4-10.4) 09/10/24 06:05
Creatinine 0.5 mg/dL (0.6-1.0) L 09/10/24 06:05
Vital Signs
Vital Signs
Temp Pulse Resp BP Pulse Ox
98.2 F 68 16 115/64 97
09/10/24 08:00 09/10/24 08:00 09/10/24 08:00 09/10/24 09:50 09/10/24 08:00

Documented by User: Osmani Leo MD 09/11/24 10:16
Plan
Plan
Discussed with patient the radiology findings concerning for cancer; however will await biopsy and pathology for final diagnosis and to guide treatment options. EUS/ERCP stenting per GI; possible IR biopsy of hepatic lesion. CA 19-9 pending. She is
understanding of likely malignancy, but remains hopeful. Discussed goals of care-- she desires full treatment and DNR/DNI code status; she has 2 sons who are medical decision makers if needed. Discussed with hospitalist.
09/10/24
Patient seen and evaluated and agree w/ resident note and plan.
--- NOTE | 2024-09-10 11:12 | CON.GI ---
Addendum entered and electronically signed by Kathryn Pickard DO 09/10/24 12:09:
patient will need to stay NPO for possible IR biopsy today
I spoke to IR, hospitalist, and oncologist and patient is aware of all of this
Addendum entered and electronically signed by Kathryn Pickard DO 09/10/24 12:05:
Patient seen and examined independently of [employer] ASSIST[employer]. I agree with her note with my additions below
Maura is a 78-year-old female with no significant past medical history other than controlled GERD, hypertension and mild asthma who saw her PCP for diffuse pruritus and underwent labs with elevated bilirubin and admitted for painless jaundice
concerning for new likely metastatic pancreatic cancer. In the emergency room she has a normal CBC, total bilirubin 9.4, direct bilirubin 7.6, AST 221, ALT 341, alkaline phosphatase 303, albumin 4.1, positive UA, negative hepatitis panel, tumor
markers ordered and pending.
She underwent a CT scan abdomen pelvis with IV and oral contrast on 09/09/2024 showing a 2.7 x 2.5 x 2.4 pancreatic head mass with potentially compression of the proximal portal vein. Marked distention of the common bile duct at 2.5 cm with prominent
intrahepatic ductal dilatation and a main pancreatic duct of 3.4 mm with a few distended sidebranches. No pancreatic stranding. 1.3 x 2 cm pancreatic head lymph node and in the liver 1.3, 1.4 and 1.2 cm lesions concerning for metastatic disease.
Unremarkable gallbladder.
Patient has had no prior abdominal surgeries
She is a non-smoker with no heavy alcohol. No family history of pancreatic cancer or pancreatitis
She denies any significant upper abdominal pain but did have some unusual constipation earlier in the week that resolved with Metamucil and is currently not complaining of any abdominal pain. No fever or chills. She has had some weight loss this
year but landed on norovirus in June but more recently has noticed her appetite is gone down, her stools have turned pale and she has lost some weight. No previous abdominal imaging in the last 5 years to review.
Plan: I have asked IR to see if the liver lesions are amendable to biopsy for staging and diagnosis - they will look but timing today will be tough
--We are planning on EUS/FNA/ERCP for stenting to bring down the bilirubin so patient can get treatment with oncology in the future
-- Timing to be determined on this procedure which may at the earliest be Friday afternoon or Friday
-- if IR can't get to the lesions today, will plan on D/C with EUS/FNA/ERCP on Friday and oncology follow up
Original Note:
Consultation
-
Date/Time Consultation Requested: 09/10/24 020
Date/Time Consultation Performed: 09/10/24 1050
Requesting Provider: Dr. Beach
Performing Provider: Dr. Pickard/TAHIR Paiz
Reason for Consultation: pancreatic mass
Medical History
Chief Complaint / HPI
Chief Complaint: abnormal labs
History of Present Illness:
78-year-old female with past medical history of hyperlipidemia, asthma, seasonal allergies, hypothyroidism, GERD and hypertension presents to the emergency room at the advice of her PCP for abnormal labs. Previously saw them for recent history 'not
feeling well since '. She states that initially she was constipated and took prune juice. She was treated by her dentist 7-day history of amoxicillin. She developed loose stools and some discomfort and cramping afterwards. She had white
stools. During that time she was taking Gatorade because of the persistent loose stools. They eventually went back to normal. She went to her PCP for evaluation and some labs. Because of their insistence is why she came to the emergency room
because of abnormalities in her labs and jaundice. We are asked to evaluate for the same. The patient states that she has not had any fevers, chills, nausea or vomiting. She has had early satiety for couple weeks with loss of appetite for food.
She has lost weight from 157 pounds down to 143 since June. She has been eating smaller quantities for the past couple weeks to a month. She has noticed that she has had an increase in her regurgitation over the past couple weeks. She states
that she has had some increase in shortness of breath. Denies any chest pain. Has had fatigue for about 4 weeks. She has noticed darker urine for the past couple days however she had attributed to her 'Gatorade'. He does have a family history of
pancreatic cancer in her brother. Otherwise no GI malignancies or IBD. Labs show total bilirubin 9.4, direct bilirubin 7.6, AST 221 down from 248, ALT 341 down from 373, alk phos 303 down from 316. WBC 8.0, hemoglobin 12.0, hematocrit 35.0,
platelets 289 CT of the abdomen and pelvis with oral and IV contrast shows 2.7 cm mass in the pancreatic head, common bile duct obstruction with marked distention of intra and extrahepatic bile ducts, common bile duct measures 2.5 cm. Pancreatic
duct distention 3.4 mm. Intrahepatic metastatic lesions. Metastatic adenopathy.
Past Medical History
Past Medical History: Other (Hyperlipidemia, asthma, seasonal allergies, hypothyroidism, GERD, hypertension, recent dental abscess mild aortic stenosis, osteoporosis, skin cancer)
Past Surgical History: Other (Ligation, skin cancer excision)
Social History
Tobacco: Non-Smoker
Alcohol: None
Drug: None
Personal:
Living: Alone
Employment: Retired
Family History
Family History: Other (With possible pancreatic cancer, no other family of GI malignancy or IBD)
Allergies / Home Medications
Allergy/AdvReac Type Severity Reaction Status Date / Time
cats, dogs, grass, trees, Allergy Pharmacy Uncoded 09/09/24 17:53
etc. to Review
�Medication �Instructions �Recorded
albuterol sulfate 2.5 mg/3 mL 2.5 mg inhalation R Q4HPRN PRN sob 09/09/24
(0.083 %) solution for nebulization
albuterol sulfate 90 mcg/actuation 2 puff inhalation R Q6HPRN PRN sob 09/09/24
aerosol inhaler
cholecalciferol (vitamin D3) 25 25 mcg PO DAILY 09/09/24
mcg (1,000 unit) tablet (Vitamin
D3)
coQ10 (ubiquinol) 100 mg capsule 100 mg PO DAILY 09/09/24
fluticasone 100 mcg-salmeterol 50 1 inh inhalation R BID 09/09/24
mcg/dose blistr powdr for
inhalation (Advair Diskus)
levothyroxine 50 mcg tablet 50 mcg PO DAILY 09/09/24
(Synthroid)
losartan 25 mg tablet 25 mg PO DAILY 09/09/24
[id number] ear 4 drp otic (ear) TIDPRN PRN 09/09/24
drops,suspension allergies
omeprazole 40 mg capsule,delayed 40 mg PO DAILY 09/09/24
release
rosuvastatin 40 mg tablet (Crestor) 40 mg PO QPM 09/09/24
therapeutic multivitamin 1 tab PO DAILY 09/09/24
Review of Systems
-
All other systems: A 12 pt ROS was Negative except as stated above in HPI
Vital Signs
Temp Pulse Resp BP Pulse Ox
98.2 F 68 16 115/64 97
09/10/24 08:00 09/10/24 08:00 09/10/24 08:00 09/10/24 09:50 09/10/24 08:00
Physical Exam
Exam
General: No Apparent Distress and Comfortable
HEENT: Other (Jaundiced)
Respiratory: Clear and Other (On 2 L supplemental nasal cannula oxygen)
Cardiac: Regular Rhythm and Murmur
GI: Soft, Non Tender, Non Distended and Normal Bowel Sounds
Musculoskeletal: No Edema
Skin: Dry
Neuro: AO x 3
Psych: Calm
Results
WBC 8.0 10^3/uL (4.8-10.8) 09/10/24 06:05
Hgb 12.0 g/dL (12.0-16.0) 09/10/24 06:05
Hct 35.0 % (37.0-47.0) L 09/10/24 06:05
MCV 85.6 fL (81.0-99.0) 09/10/24 06:05
Plt Count 289 10^3/uL (130-400) 09/10/24 06:05
Sodium 137 mmol/L (135-145) 09/10/24 06:05
Potassium 4.5 mmol/L (3.5-5.1) 09/10/24 06:05
Chloride 100 mmol/L (98-107) 09/10/24 06:05
Carbon Dioxide 25 mmol/L (22-30) 09/10/24 06:05
BUN 13 mg/dl (7-17) 09/10/24 06:05
Creatinine 0.5 mg/dL (0.6-1.0) L 09/10/24 06:05
Calcium 9.5 mg/dl (8.4-10.2) 09/10/24 06:05
Total Bilirubin 9.4 mg/dl (0.2-1.3) H 09/10/24 06:05
AST 221 U/L (14-36) H 09/10/24 06:05
ALT 341 U/L (0-35) H 09/10/24 06:05
Alkaline Phosphatase 303 U/L (38-126) H 09/10/24 06:05
Hepatitis A IgM Ab Negative (Negative) 09/09/24 20:34
Hep Bs Antibody Negative 09/09/24 20:34
Hep B Core IgM Ab Negative (Negative) 09/09/24 20:34
Hepatitis C Antibody Negative (Negative) 09/09/24 20:34
Diagnostic Image Results:
CT abdomen pelvis with oral and IV contrast:
2.7 cm mass in the pancreatic head, consistent with pancreatic adenocarcinoma. Common bile duct obstruction with marked distention of intrahepatic and extrahepatic bile ducts, common bile duct measuring up to 2.5 cm. Relatively minor main pancreatic
duct distention of approximately 3.4 mm. Intrahepatic metastatic lesions. Metastatic adenopathy. Loss of fat plane between the left lateral margin of the mass the adjacent superior mesenteric vein. There is also loss of distinct margination between
the mass and the proximal portal vein which is slightly narrowed and may be partially compressed
Possible low-grade sigmoid diverticulitis.
7 mm nonobstructing left renal calculus
Prior GI Procedures:
EGD: 09/13/2014 Dr. Sandoval: - Z-line regular, 39 cm from the incisors. Biopsied.
- Normal stomach. Biopsied.
- Normal 3rd part of the duodenum. Biopsied.
- GERD, diagnosis based on history.
Colonoscopy: 05/27/2022 (Dr. Sandoval): - Diverticulosis in the sigmoid colon, in the
descending colon and in the transverse colon.
- The examination was otherwise normal.
- No specimens collected.
Colonoscopy 08/07/2011 (Dr. Sandoval): - Diverticulosis in the sigmoid colon and in the
descending colon.
- Biopsies were taken with a cold forceps from the
cecum, right colon, right transverse colon, descending
colon and rectum for evaluation of microscopic colitis.
- Normal mucosa entire examined colon. This was biopsied
07/19/2009 (Dr. Sandoval)EGD :
- Z-line regular, 39 cm from the incisors.
- Normal stomach. Biopsy was performed.
- Normal 2nd part of the duodenum.
Assessment / Plan
-
78-year-old female with past medical history of hyperlipidemia, asthma, seasonal allergies, hypothyroidism, GERD and hypertension presents to the emergency room at the advice of her PCP for abnormal labs. Previously saw them for recent history 'not
feeling well since '. She states that initially she was constipated and took prune juice. She was treated by her dentist 7-day history of amoxicillin. She developed loose stools and some discomfort and cramping afterwards. She had white
stools. During that time she was taking Gatorade because of the persistent loose stools. They eventually went back to normal. She went to her PCP for evaluation and some labs. Because of their insistence is why she came to the emergency room
because of abnormalities in her labs and jaundice. We are asked to evaluate for the same.
-- Patient with symptoms since June consisting of weight loss, early satiety, increased regurgitation of food, fatigue with some increased shortness of breath, acholic stools with recent bilirubinuria over the past week.Labs show total bilirubin
9.4, direct bilirubin 7.6, AST 221 down from 248, ALT 341 down from 373, alk phos 303 down from 316. WBC 8.0, hemoglobin 12.0, hematocrit 35.0, platelets 289 CT of the abdomen and pelvis with oral and IV contrast shows 2.7 cm mass in the pancreatic
head, common bile duct obstruction with marked distention of intra and extrahepatic bile ducts, common bile duct measures 2.5 cm. Pancreatic duct distention 3.4 mm. Intrahepatic metastatic lesions. Metastatic adenopathy.
Impression:
Pancreatic head mass 2.7 cm with common bile duct obstruction, pancreatic duct distention
Likely intrahepatic metastatic lesions and metastatic adenopathy
Obstructive jaundice
-Patient being treated for acute exacerbation of asthma currently on 2 L supplemental oxygen
Plan:
- Check CEA, CA 19-9
- Okay for regular diet
- Will need EUS with FNA, +/- ERCP with stenting, inpatient versus outpatient to be determined (early next week)
- Further recommendations to be forthcoming
-
-
Thank you for consultation and allowing me to participate in the patient's care. Please call the [facility] physician during the after hours with any questions or concerns.
[2024-09-10 14:22] LABS: INR 1.03; PT 13.8 Sec (11.4-14.6)
[2024-09-10 14:34] VITALS: BP 124/65; BP_SYST 65
--- NOTE | 2024-09-10 15:23 | W.PN.UPDATE ---
Update Note
Progress Note Update
- Pt brought to IR for possible US guided liver biopsy
- Unfortunately, could not localize any of her small lesions for biopsy.
[2024-09-10 16:00] VITALS: BP 139/98
--- NOTE | 2024-09-10 16:19 | CM ---
Patient seen at bedside
IA completed
IR for liver bx today
Lives alone in a multi-story home, 2 steps to enter, flight stairs bed/bath, powder room 1st floor
son lives on the next block
PLOF: Independent
Denies DME
Denies VN/Rehab
PCP: Kiya Simms
Pharmacy: [facility]
PLAN: home, no needs anticipated, when medically stable. CM to continue to follow
[2024-09-10 17:22] LABS: CEA 9.36 ng/ml
[2024-09-10 23:00] VITALS: BP 116/65
[2024-09-11] MEDS: SYNTHROID 50 MCG PO (05:52)
[2024-09-11 06:00] VITALS: BMI 26.8
[2024-09-11 06:35] LABS: Hematocrit 36.5 % (37.0-47.0); Hemoglobin 12.6 g/dL (12.0-16.0); Mean Corp Hgb Conc. 34.5 g/dL (33.0-37.0); Mean Corpuscular Hgb 29.7 pg (27.0-31.0); Mean Corpuscular Volume 86.1 fL (81.0-99.0); Mean Platelet Volume 9.7 fL (7.4-10.4); Platelet Count 287 10^3/uL (130-400); Red Blood Cell Count 4.24 10^6/uL (4.20-5.40); Red Cell Dist. Width 14.6 % (11.5-14.5); White Blood Cell Count 6.5 10^3/uL (4.8-10.8)
[2024-09-11 07:00] VITALS: BP 121/78
[2024-09-11 07:13] LABS: ALT (SGPT) 367 U/L (0-35); AST (SGOT) 260 U/L (14-36); Albumin 3.9 g/dl (3.5-5.0); Alkaline Phosphatase 288 U/L (38-126); Blood Urea Nitrogen 14 mg/dl (7-17); Calcium 9.8 mg/dl (8.4-10.2); Carbon Dioxide 30 mmol/L (22-30); Chloride 100 mmol/L (98-107); Estimated Creatinine Clearance 65 ml/min; Glucose 157 mg/dl (70-99); Potassium 4.3 mmol/L (3.5-5.1); Sodium 141 mmol/L (135-145); Total Bilirubin 10.8 mg/dl (0.2-1.3); Total Protein 7.2 g/dl (6.3-8.2); eGFR > 60.00
[2024-09-11] MEDS: PROTONIX IV 40 MG IV (07:26)
[2024-09-11] MEDS: COZAAR 25 MG PO (07:27)
[2024-09-11] MEDS: NSS (PRESERVATIVE FREE) 10 ML IV (07:27)
[2024-09-11] MEDS: ADVAIR HFA 45/21 MCG INHALER 2 PUFF INH (08:18)
--- NOTE | 2024-09-11 11:03 | W.PN.HOSP.TC ---
Today's Communication/Plan
-
PRN Atarax
Assessment / Plan
Assessment / Plan
Physical Exam
General: Not in acute distress. Grossly jaundiced.
HEENT: Scleral icterus. Moist mucosal membranes.
Respiratory: Clear to Auscultation Bilaterally
Cardiac: S1/S2, Regular Rhythm and Murmur (II/ EHSAN)
GI: Soft, Non Distended, Normal Bowel Sounds and Other (Pos upper abdominal tenderness without rebound / guarding.)
Musculoskeletal: No Cyanosis and No Edema
Neuro: AAO x 3
Assessment/Plan
Pancreatic Mass
Jaundice
Abnormal LFTs
- CT done in the ED this evening shows 2.5cm pancreatic head mass with associated ductal dilation. Possible hepatic lesions and adenopathy.
- GI and Oncology evaluations.
- Check tumor markers for baseline CA 19-9 ( pending)
- CEA 9.36 ( elevated)
- Supportive care / symptom control for pain and nausea.
- Oncology team spoke with patient and based on their discussion with the patient, mentioned that patient now wants to be DNR/DNI status
- Patient needs biopsies of the liver mets in order to stage and diagnose the patient -- Dr. Phillips of GI requested to keep patient here to have EUS/ERCP/FNA done early next week
# Diffuse skin pruritis due to obstructive jaundice
Add PRN Atarax
Benign Hypertension
- Stable. Continue losartan.
Hypothyroidism
- Stable. Continue current T4 replacement.
Moderate Persistent Asthma without Acute Exacerbation
Wheezing on Physical Exam
- Sees Dr. Hanks outpatient
- Stable. Albuterol nebs PRN for now
- Not in respiratory distress, on room air saturating oxygen well
DVT Prophylaxis: SCDs
Code Status: DNR/DNI (as confirmed on September 11, 2023 by oncology team -- they confirmed this with the patient)
Total time spent to see the patient, examine the patient, review data and lab result, discuss treatment plan with the patient, nursing staff around 55 minutes
Anticipated Discharge: > 48 hours
Subjective/Interval History
-
Date of Service: September 11, 2024
no chest pain
No abdominal pain
No nausea
Some itching
Objective Data
-
Labs:
Laboratory Results
09/11/24
06:10
WBC 6.5
Hgb 12.6
Hct 36.5 L
Plt Count 287
Sodium 141
Potassium 4.3
Chloride 100
Carbon Dioxide 30
BUN 14
Creatinine 0.6
Glucose 157 H
Calcium 9.8
Total Bilirubin 10.8 H
AST 260 H
ALT 367 H
Alkaline Phosphatase 288 H
Vital Signs:
Vital Signs
Temp Pulse Resp BP Pulse Ox
98.4 F 71 16 121/78 93
09/11/24 07:00 09/11/24 08:21 09/11/24 08:21 09/11/24 07:27 09/11/24 08:21
I&O
09/10/24 09/11/24 09/12/24
06:59 06:59 06:59
Intake Total 600 / 600
Balance 600 / 600
--- NOTE | 2024-09-11 12:16 | W.PN.GI.CBS2 ---
Today's Communication / Plan
-
-- Nothing for today. Hold Lovenox tomorrow night, n.p.o. after midnight on Friday night
-- I canceled blood work for tomorrow and ordered it for Friday morning
Assessment / Plan
-
Maura is a 78-year-old female with no significant past medical history other than controlled GERD, hypertension and mild asthma who saw her PCP for diffuse pruritus and underwent labs with elevated bilirubin and admitted for painless jaundice
concerning for new likely metastatic pancreatic cancer.
In the emergency room she has a normal CBC, total bilirubin 9.4, direct bilirubin 7.6, AST 221, ALT 341, alkaline phosphatase 303, albumin 4.1, positive UA, negative hepatitis panel, tumor markers ordered and pending.
09/09/2024 CT scan abdomen pelvis with IV and oral contrast on 09/09/2024 showing a 2.7 x 2.5 x 2.4 pancreatic head mass with potentially compression of the proximal portal vein. Marked distention of the common bile duct at 2.5 cm with prominent
intrahepatic ductal dilatation and a main pancreatic duct of 3.4 mm with a few distended sidebranches. No pancreatic stranding. 1.3 x 2 cm pancreatic head lymph node and in the liver 1.3, 1.4 and 1.2 cm lesions concerning for metastatic disease.
Unremarkable gallbladder.
Patient has had no prior abdominal surgeries
She is a non-smoker with no heavy alcohol. No family history of pancreatic cancer or pancreatitis
She denies any significant upper abdominal pain but did have some unusual constipation earlier in the week that resolved with Metamucil and is currently not complaining of any abdominal pain. No fever or chills. She has had some weight loss this
year but blamed on norovirus in June but more recently has noticed her appetite is gone down, her stools have turned pale and she has lost some weight. No previous abdominal imaging in the last 5 years to review.
09/11/2024
Pancreatic head mass 2.7 cm with common bile duct obstruction, pancreatic duct distention
Likely intrahepatic metastatic lesions and metastatic adenopathy
Obstructive jaundice
CA 19-9 pending
Radiology was unable to biopsy the liver lesions due to location and size
Patient in for EUS/FNA/ERCP Friday
Hold Lovenox Friday
N.p.o. after midnight on Friday
- Okay for regular diet
Subjective
Subjective
Date of Service: September 11, 2024
Maura is in good spirits. Eating well. Hoping for her procedure Friday
Objective
Data Reviewed
Laboratory Data:
Laboratory Results
09/11/24 06:10
09/11/24 06:10
Laboratory Results
PT 13.8 Sec (11.4-14.6) 09/10/24 14:06
INR 1.03 09/10/24 14:06
Total Bilirubin 10.8 mg/dl (0.2-1.3) H 09/11/24 06:10
AST 260 U/L (14-36) H 09/11/24 06:10
ALT 367 U/L (0-35) H 09/11/24 06:10
Alkaline Phosphatase 288 U/L (38-126) H 09/11/24 06:10
Vital Signs and I&O:
Vital Signs
Temp Pulse Resp BP Pulse Ox
98.4 F 71 16 121/78 93
09/11/24 07:00 09/11/24 08:21 09/11/24 08:21 09/11/24 07:27 09/11/24 08:21
I&O
09/10/24 09/11/24 09/12/24
06:59 06:59 06:59
Intake Total 600 / 600
Balance 600 / 600
Physical Exam
Physical Exam
HEENT: Anicteric (Icteric)
GI: Soft and Non Tender
Extremities: No Edema
Neuro: Non Focal
[2024-09-11 15:00] VITALS: BP 114/69
[2024-09-11 15:04] VITALS: PULSE 71; O2SAT 94
[2024-09-11] MEDS: ZOFRAN 4 MG IV (18:58)
[2024-09-11] MEDS: DILAUDID 0.5 MG IV (20:45)
[2024-09-11 23:00] VITALS: BP 108/62
[2024-09-12] MEDS: ADVAIR HFA 45/21 MCG INHALER INH (01:13)
[2024-09-12] MEDS: SYNTHROID 50 MCG PO (05:55)
[2024-09-12 06:00] VITALS: BMI 26.7
[2024-09-12 07:00] VITALS: BP 144/77
[2024-09-12] MEDS: NSS (PRESERVATIVE FREE) 10 ML IV (07:31)
[2024-09-12] MEDS: COZAAR 25 MG PO (07:31)
[2024-09-12] MEDS: PROTONIX IV 40 MG IV (07:31)
[2024-09-12] MEDS: ADVAIR HFA 45/21 MCG INHALER 2 PUFF INH ×2 (07:43→20:30)
--- NOTE | 2024-09-12 08:58 | W.PN.HOSP.TC ---
Today's Communication/Plan
-
NPO past MN
PRN Atarax
Assessment / Plan
Assessment / Plan
Physical Exam
General: Not in acute distress. Grossly jaundiced.
HEENT: Scleral icterus. Moist mucosal membranes.
Respiratory: Clear to Auscultation Bilaterally
Cardiac: S1/S2, Regular Rhythm and Murmur (II/ EHSAN)
GI: Soft, Non Distended, Normal Bowel Sounds and Other (Pos upper abdominal tenderness without rebound / guarding.)
Musculoskeletal: No Cyanosis and No Edema
Neuro: AAO x 3
Assessment/Plan
Pancreatic Mass
Jaundice
Abnormal LFTs
- CT done in the ED this evening shows 2.5cm pancreatic head mass with associated ductal dilation. Possible hepatic lesions and adenopathy.
- GI and Oncology evaluations.
- Check tumor markers for baseline CA 19-9 ( pending)
- CEA 9.36 ( elevated)
- Supportive care / symptom control for pain and nausea.
- Oncology team spoke with patient and based on their discussion with the patient, mentioned that patient now wants to be DNR/DNI status
- Patient needs biopsies of the liver mets in order to stage and diagnose the patient -- Dr. Phillips of GI requested to keep patient here to have EUS/ERCP/FNA done early next week
# Diffuse skin pruritis due to obstructive jaundice
Add PRN Atarax
Benign Hypertension
- Stable. Continue losartan.
Hypothyroidism
- Stable. Continue current T4 replacement.
Moderate Persistent Asthma without Acute Exacerbation
Wheezing on Physical Exam
- Sees Dr. Hanks outpatient
- Stable. Albuterol nebs PRN for now
- Not in respiratory distress, on room air saturating oxygen well
DVT Prophylaxis: SCDs
Code Status: DNR/DNI (as confirmed on September 11, 2023 by oncology team -- they confirmed this with the patient)
Total time spent to see the patient, examine the patient, review data and lab result, discuss treatment plan with the patient, nursing staff around 55 minutes
Anticipated Discharge: 24 - 48 hours
Subjective/Interval History
-
Date of Service: September 12, 2024
No worsening itching
NO worsening abd pain
Objective Data
-
Vital Signs:
Vital Signs
Temp Pulse Resp BP Pulse Ox
98.9 F 94 16 144/77 94
09/12/24 07:00 09/12/24 07:57 09/12/24 07:57 09/12/24 07:00 09/12/24 07:57
I&O
09/11/24 09/12/24 09/13/24
06:59 06:59 06:59
Intake Total 600 / 600 1860 / 1860
Balance 600 / 600 1860 / 1860
[2024-09-12 09:24] LABS: CA 19-9 1962 U/mL (<=35)
--- NOTE | 2024-09-12 12:33 | W.PN.GI.CBS2 ---
Today's Communication / Plan
-
-- Add Ensure, n.p.o. after midnight hold Lovenox tonight for EUS/ERCP tomorrow
Assessment / Plan
-
Maura is a 78-year-old female with no significant past medical history other than controlled GERD, hypertension and mild asthma who saw her PCP for diffuse pruritus and underwent labs with elevated bilirubin and admitted for painless jaundice
concerning for new likely metastatic pancreatic cancer.
In the emergency room she has a normal CBC, total bilirubin 9.4, direct bilirubin 7.6, AST 221, ALT 341, alkaline phosphatase 303, albumin 4.1, positive UA, negative hepatitis panel, tumor markers ordered and pending.
09/09/2024 CT scan abdomen pelvis with IV and oral contrast on 09/09/2024 showing a 2.7 x 2.5 x 2.4 pancreatic head mass with potentially compression of the proximal portal vein. Marked distention of the common bile duct at 2.5 cm with prominent
intrahepatic ductal dilatation and a main pancreatic duct of 3.4 mm with a few distended sidebranches. No pancreatic stranding. 1.3 x 2 cm pancreatic head lymph node and in the liver 1.3, 1.4 and 1.2 cm lesions concerning for metastatic disease.
Unremarkable gallbladder.
Patient has had no prior abdominal surgeries
She is a non-smoker with no heavy alcohol. No family history of pancreatic cancer or pancreatitis
She denies any significant upper abdominal pain but did have some unusual constipation earlier in the week that resolved with Metamucil and is currently not complaining of any abdominal pain. No fever or chills. She has had some weight loss this
year but blamed on norovirus in June but more recently has noticed her appetite is gone down, her stools have turned pale and she has lost some weight. No previous abdominal imaging in the last 5 years to review.
09/11/2024
Pancreatic head mass 2.7 cm with common bile duct obstruction, pancreatic duct distention
Likely intrahepatic metastatic lesions and metastatic adenopathy
Obstructive jaundice
CA 19-9 pending
Radiology was unable to biopsy the liver lesions due to location and size
Patient in for EUS/FNA/ERCP Friday
Hold Lovenox Friday
N.p.o. after midnight on Friday
- Okay for regular diet added Ensure strawberry to her list
09/12/2024: I had a 45-minute discussion with her family including drawing out what was seen on her imaging and discussing how all of this will go
And they are aware
Added strawberry Ensure
Subjective
Subjective
Date of Service: September 12, 2024
Patient was feeling a little queasy with some mild discomfort in the upper abdomen today. Tolerating her diet. Family in the room and are all aware
Objective
Data Reviewed
Laboratory Data:
Laboratory Results
09/11/24 06:10
09/11/24 06:10
Laboratory Results
PT 13.8 Sec (11.4-14.6) 09/10/24 14:06
INR 1.03 09/10/24 14:06
Total Bilirubin 10.8 mg/dl (0.2-1.3) H 09/11/24 06:10
AST 260 U/L (14-36) H 09/11/24 06:10
ALT 367 U/L (0-35) H 09/11/24 06:10
Alkaline Phosphatase 288 U/L (38-126) H 09/11/24 06:10
Vital Signs and I&O:
Vital Signs
Temp Pulse Resp BP Pulse Ox
98.9 F 94 16 144/77 94
09/12/24 07:00 09/12/24 07:57 09/12/24 07:57 09/12/24 07:00 09/12/24 07:57
I&O
09/11/24 09/12/24 09/13/24
06:59 06:59 06:59
Intake Total 600 / 600 0 / 1860
Balance 600 / 600 1860 / 1860
Physical Exam
Physical Exam
HEENT: Anicteric (Icteric/jaundice)
GI: Soft and Non Tender
Extremities: No Edema
Neuro: Non Focal
[2024-09-12 15:00] VITALS: BP 126/76
[2024-09-12] MEDS: DILAUDID 0.5 MG IV (19:01)
[2024-09-12 23:00] VITALS: BP 117/74
[2024-09-13] VITALS (12 sets, daily range): BP systolic 118–165; BP diastolic 64–88; BMI 27.0
[2024-09-13] MEDS: SYNTHROID 50 MCG PO (05:50)
[2024-09-13 06:50] LABS: Hematocrit 35.1 % (37.0-47.0); Hemoglobin 11.7 g/dL (12.0-16.0); Mean Corp Hgb Conc. 33.3 g/dL (33.0-37.0); Mean Corpuscular Hgb 29.2 pg (27.0-31.0); Mean Corpuscular Volume 87.5 fL (81.0-99.0); Mean Platelet Volume 9.8 fL (7.4-10.4); Platelet Count 285 10^3/uL (130-400); Red Blood Cell Count 4.01 10^6/uL (4.20-5.40); Red Cell Dist. Width 14.9 % (11.5-14.5); White Blood Cell Count 5.8 10^3/uL (4.8-10.8)
[2024-09-13 07:07] LABS: ALT (SGPT) 417 U/L (0-35); AST (SGOT) 276 U/L (14-36); Albumin 4.1 g/dl (3.5-5.0); Alkaline Phosphatase 290 U/L (38-126); Blood Urea Nitrogen 15 mg/dl (7-17); Calcium 9.3 mg/dl (8.4-10.2); Carbon Dioxide 30 mmol/L (22-30); Chloride 100 mmol/L (98-107); Estimated Creatinine Clearance 65 ml/min; Glucose 182 mg/dl (70-99); Potassium 4.6 mmol/L (3.5-5.1); Sodium 139 mmol/L (135-145); Total Bilirubin 10.6 mg/dl (0.2-1.3); Total Protein 7.1 g/dl (6.3-8.2); eGFR > 60.00
[2024-09-13] MEDS: NSS (PRESERVATIVE FREE) 10 ML IV (07:12)
[2024-09-13] MEDS: PROTONIX IV 40 MG IV (07:12)
[2024-09-13] MEDS: COZAAR 25 MG PO (07:18)
[2024-09-13] MEDS: ADVAIR HFA 45/21 MCG INHALER 2 PUFF INH ×2 (07:24→20:09)
--- NOTE | 2024-09-13 08:04 | W.PN.HOSP.TC ---
Today's Communication/Plan
-
EUS/ERCP/FNA with Dr. Phillips
Assessment / Plan
Assessment / Plan
Physical Exam
General: Not in acute distress. Grossly jaundiced.
HEENT: Scleral icterus. Moist mucosal membranes.
Respiratory: Clear to Auscultation Bilaterally
Cardiac: S1/S2, Regular Rhythm and Murmur (II/ EHSAN)
GI: Soft, Non Distended, Normal Bowel Sounds and Other (Pos upper abdominal tenderness without rebound / guarding.)
Musculoskeletal: No Cyanosis and No Edema
Neuro: AAO x 3
Assessment/Plan
Pancreatic Mass
Jaundice
Abnormal LFTs
- CT done in the ED this evening shows 2.5cm pancreatic head mass with associated ductal dilation. Possible hepatic lesions and adenopathy.
- GI and Oncology evaluations.
- Check tumor markers for baseline CA 19-9 ( pending)
- CEA 9.36 ( elevated)
- Supportive care / symptom control for pain and nausea.
- Oncology team spoke with patient and based on their discussion with the patient, mentioned that patient now wants to be DNR/DNI status
- Patient needs biopsies of the liver mets in order to stage and diagnose the patient -- Dr. Phillips of GI requested to keep patient here to have EUS/ERCP/FNA done early next week
Diffuse skin pruritis due to obstructive jaundice
-PRN Atarax
Benign Hypertension
- Stable. Continue losartan.
Hypothyroidism
- Stable. Continue current T4 replacement.
Moderate Persistent Asthma without Acute Exacerbation
Wheezing on Physical Exam
- Sees Dr. Hanks outpatient
- Stable. Albuterol nebs PRN for now
- Not in respiratory distress, on room air saturating oxygen well
DVT Prophylaxis: SCDs
Code Status: DNR/DNI (as confirmed on September 11, 2023 by oncology team -- they confirmed this with the patient)
Anticipated Discharge: Within 24 hours
Subjective/Interval History
-
Date of Service: September 13, 2024
Patient was seen and examined. She denied any complaints.
Objective Data
-
Labs:
Laboratory Results
09/13/24
06:24
WBC 5.8
Hgb 11.7 L
Hct 35.1 L
Plt Count 285
Sodium 139
Potassium 4.6
Chloride 100
Carbon Dioxide 30
BUN 15
Creatinine 0.5 L
Glucose 182 H
Calcium 9.3
Total Bilirubin 10.6 H
AST 276 H
ALT 417 H
Alkaline Phosphatase 290 H
Vital Signs:
Vital Signs
Temp Pulse Resp BP Pulse Ox
98.2 F 72 16 146/67 95
09/13/24 07:38 09/13/24 07:38 09/13/24 07:38 09/13/24 07:38 09/13/24 07:38
I&O
09/12/24 09/13/24 09/14/24
06:59 06:59 06:59
Intake Total 1859
Balance 1859
--- NOTE | 2024-09-13 14:43 | W.PN.UPDATE ---
Update Note
Progress Note Update
Dr. Phillips of gastroenterology recommended keeping patient here until tomorrow and recheck her LFTs tomorrow morning.
[2024-09-13] MEDS: TYLENOL 650 MG PO (19:36)
[2024-09-13] MEDS: ZOFRAN 4 MG IV (19:39)
[2024-09-13] MEDS: MELATONIN 5 MG PO (21:38)
[2024-09-14 06:00] VITALS: BMI 27.1
[2024-09-14] MEDS: SYNTHROID 50 MCG PO (06:06)
[2024-09-14 07:10] VITALS: BP 133/73
[2024-09-14] MEDS: ADVAIR HFA 45/21 MCG INHALER 2 PUFF INH (07:38)
[2024-09-14] MEDS: COZAAR 25 MG PO (07:55)
[2024-09-14] MEDS: PROTONIX IV 40 MG IV (07:55)
[2024-09-14] MEDS: NSS (PRESERVATIVE FREE) 10 ML IV (07:55)
[2024-09-14 09:53] LABS: Hematocrit 35.1 % (37.0-47.0); Mean Corp Hgb Conc. 34.2 g/dL (33.0-37.0); Mean Corpuscular Hgb 29.7 pg (27.0-31.0); Mean Corpuscular Volume 86.9 fL (81.0-99.0); Platelet Count 328 10^3/uL (130-400); Red Blood Cell Count 4.04 10^6/uL (4.20-5.40); White Blood Cell Count 8.8 10^3/uL (4.8-10.8)
[2024-09-14 10:20] LABS: ALT (SGPT) 432 U/L (0-35); AST (SGOT) 272 U/L (14-36); Albumin 4.2 g/dl (3.5-5.0); Alkaline Phosphatase 299 U/L (38-126); Blood Urea Nitrogen 13 mg/dl (7-17); Calcium 9.2 mg/dl (8.4-10.2); Carbon Dioxide 26 mmol/L (22-30); Chloride 100 mmol/L (98-107); Estimated Creatinine Clearance 66 ml/min; Glucose 163 mg/dl (70-99); Potassium 4.1 mmol/L (3.5-5.1); Sodium 141 mmol/L (135-145); Total Bilirubin 5.8 mg/dl (0.2-1.3); Total Protein 7.2 g/dl (6.3-8.2); eGFR > 60.00
[2024-09-14 11:30] VITALS: BP 116/67
--- NOTE | 2024-09-14 12:17 | W.PN.HOSP.TC ---
Today's Communication/Plan
-
Discharge today
Assessment / Plan
Assessment / Plan
Physical Exam
General: Not in acute distress. Grossly jaundiced.
HEENT: Scleral icterus. Moist mucosal membranes.
Respiratory: Clear to Auscultation Bilaterally
Cardiac: S1/S2, Regular Rhythm and Murmur (II/ EHSAN)
GI: Soft, Non Distended, Normal Bowel Sounds and Other (Pos upper abdominal tenderness without rebound / guarding.)
Musculoskeletal: No Cyanosis and No Edema
Neuro: AAO x 3
Assessment/Plan
Pancreatic Mass
Jaundice
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
Dilated biliary duct
Abnormal LFTs
- CT done in the ED this evening shows 2.5cm pancreatic head mass with associated ductal dilation. Possible hepatic lesions and adenopathy.
- GI and Oncology evaluations.
- Check tumor markers for baseline CA 19-9 ( pending)
- CEA 9.36 ( elevated)
- Supportive care / symptom control for pain and nausea.
- Oncology team spoke with patient and based on their discussion with the patient, mentioned that patient now wants to be DNR/DNI status
- Patient needs biopsies of the liver mets in order to stage and diagnose the patient
- Status post EUS/ERCP with Dr. Phillips on 09/13/24
- Follow-up closely with brusher machine Dr. Phillips and oncology outpatient
Diffuse skin pruritus due to obstructive jaundice
Benign Hypertension
- Stable. Continue losartan.
Hypothyroidism
- Stable. Continue current T4 replacement.
Moderate Persistent Asthma without Acute Exacerbation
Wheezing on Physical Exam
- Sees Dr. Hanks outpatient
- Stable. Albuterol nebs PRN for now
- Not in respiratory distress, on room air saturating oxygen well
DVT Prophylaxis: SCDs
Code Status: DNR/DNI (as confirmed on September 11, 2023 by oncology team -- they confirmed this with the patient)
More than 30 minutes spent in discharge including
Final examination of the patient
Summarizing hospital stay
Instructions for continuing care to all relevant caregivers
Preparation of discharge records, prescriptions, and referral forms
Total time spent (in minutes): 36
Anticipated Discharge: Today
Subjective/Interval History
-
Date of Service: September 14, 2024
Patient was seen and examined. She denied any complaints.
Objective Data
-
Labs:
Laboratory Results
09/14/24
08:34
WBC 8.8
Hgb 12.0
Hct 35.1 L
Plt Count 328
Sodium 141
Potassium 4.1
Chloride 100
Carbon Dioxide 26
BUN 13
Creatinine 0.6
Glucose 163 H
Calcium 9.2
Total Bilirubin 5.8 H
AST 272 H
ALT 432 H
Alkaline Phosphatase 299 H
Vital Signs:
Vital Signs
Temp Pulse Resp BP Pulse Ox
98.3 F 94 16 133/73 96
09/14/24 07:10 09/14/24 07:55 09/14/24 07:41 09/14/24 07:55 09/14/24 07:41
I&O
09/13/24 09/14/24 09/15/24
06:59 06:59 06:59
Intake Total 1979 430 / 430
Balance 1979 430 / 430
--- NOTE | 2024-09-14 12:29 | W.PN.ONC ---
Today's Communication / Plan
-
Home today. Cytology pending. We will see her in the office next week, unclear whether she will require biopsy of the liver lesion. Probable PET scan.
Impression
Impression
Pancreatic mass-- CT findings concerning for adenocarcinoma with metastatic intrahepatic lesion and adenopathy
Obstructive jaundice
CT abd/pelvis 09/09/24:
2.7 cm mass in the pancreatic head, consistent with pancreatic adenocarcinoma. Common bile duct obstruction with marked distention of intrahepatic and extrahepatic bile ducts, common bile duct measuring up to 2.5 cm. Relatively minor main pancreatic
duct distention of approximately 3.4 mm. Intrahepatic metastatic lesions. Metastatic adenopathy. Loss of fat plane between the left lateral margin of the mass the adjacent superior mesenteric vein. There is also loss of distinct margination between
the mass and the proximal portal vein which is slightly narrowed and may be partially compressed
Plan
Plan
Discussed with patient the radiology findings concerning for cancer; however will await biopsy and pathology for final diagnosis and to guide treatment options. EUS/ERCP stenting per GI; possible IR biopsy of hepatic lesion. CA 19-9 pending. She is
understanding of likely malignancy, but remains hopeful. Discussed goals of care-- she desires full treatment and DNR/DNI code status; she has 2 sons who are medical decision makers if needed. Discussed with hospitalist.
09/10/24
Patient seen and evaluated and agree w/ resident note and plan.
Subjective/Objective
Subjective/Objective
She is feeling reasonably well. She reports no new symptoms. She denies any abdominal pain. Examination is unchanged.
Bilirubin has fallen from about 10 down to 5.
Vital Signs:
Vital Signs
Temp Pulse Resp BP Pulse Ox
98.3 F 94 16 133/73 96
09/14/24 07:10 09/14/24 07:55 09/14/24 07:41 09/14/24 07:55 09/14/24 07:41
Lab Results:
Laboratory Data
WBC 8.8 10^3/uL (4.8-10.8) 09/14/24 08:34
Hgb 12.0 g/dL (12.0-16.0) 09/14/24 08:34
Plt Count 328 10^3/uL (130-400) 09/14/24 08:34
PT 13.8 Sec (11.4-14.6) 09/10/24 14:06
INR 1.03 09/10/24 14:06
eGFR > 60.00 09/14/24 08:34
--- NOTE | 2024-09-14 13:54 | W.PN.GI.CBS2 ---
Today's Communication / Plan
-
Okay to advance diet
Follow-up FNA path results with
follow up with oncology
Assessment / Plan
-
Maura is a 78-year-old female with no significant past medical history other than controlled GERD, hypertension and mild asthma who saw her PCP for diffuse pruritus and underwent labs with elevated bilirubin and admitted for painless jaundice
concerning for new likely metastatic pancreatic cancer.
In the emergency room she has a normal CBC, total bilirubin 9.4, direct bilirubin 7.6, AST 221, ALT 341, alkaline phosphatase 303, albumin 4.1, positive UA, negative hepatitis panel, tumor markers ordered and pending.
09/09/2024 CT scan abdomen pelvis with IV and oral contrast on 09/09/2024 showing a 2.7 x 2.5 x 2.4 pancreatic head mass with potentially compression of the proximal portal vein. Marked distention of the common bile duct at 2.5 cm with prominent
intrahepatic ductal dilatation and a main pancreatic duct of 3.4 mm with a few distended sidebranches. No pancreatic stranding. 1.3 x 2 cm pancreatic head lymph node and in the liver 1.3, 1.4 and 1.2 cm lesions concerning for metastatic disease.
Unremarkable gallbladder.
Patient has had no prior abdominal surgeries
She is a non-smoker with no heavy alcohol. No family history of pancreatic cancer or pancreatitis
She denies any significant upper abdominal pain but did have some unusual constipation earlier in the week that resolved with Metamucil and is currently not complaining of any abdominal pain. No fever or chills. She has had some weight loss this
year but blamed on norovirus in June but more recently has noticed her appetite is gone down, her stools have turned pale and she has lost some weight. No previous abdominal imaging in the last 5 years to review.
09/11/2024
Pancreatic head mass 2.7 cm with common bile duct obstruction, pancreatic duct distention
Likely intrahepatic metastatic lesions and metastatic adenopathy
Obstructive jaundice
CA 19-9 -1961
EUS 09/14
Impression: - Normal esophagus.
- No gross lesions in the entire stomach.
- Normal duodenal bulb, first portion of the duodenum
and second portion of the duodenum.
- A mass was identified in the pancreatic head. This
was staged T2 Nx Mx by endosonographic criteria. Fine
needle biopsy performed.
- There was dilation in the common bile duct which
measured up to 23 mm.
- There was no evidence of significant pathology in
the left lobe of the liver.
ERCP 09/14
Impression: - A single severe biliary stricture was found in the
lower third of the main bile duct. The stricture was
malignant appearing.
- The upper third of the main bile duct and middle
third of the main bile duct were severely dilated.
- A biliary sphincterotomy was performed.
- One covered metal stent was placed into the common
bile duct.
- The lower third of the main bile duct was
successfully dilated.
- One plastic stent was placed into the common bile
duct.
plan
AM labs showing downtrending bilirubin.
Okay to advance diet
Follow-up FNA path with Dr. Phillips
Follow-up with oncology
If patient continues to have diarrhea would recommend stool testing for infection
No further mentation at this point. Will sign off
Total Time Spent with Patient (in minutes): 35
Subjective
Subjective
Date of Service: September 14, 2024
Denies abdominal pain/nausea/vomiting. Reports some loose stools
Objective
Data Reviewed
Laboratory Data:
Laboratory Results
09/14/24 08:34
09/14/24 08:34
Laboratory Results
PT 13.8 Sec (11.4-14.6) 09/10/24 14:06
INR 1.03 09/10/24 14:06
Total Bilirubin 5.8 mg/dl (0.2-1.3) H 09/14/24 08:34
AST 272 U/L (14-36) H 09/14/24 08:34
ALT 432 U/L (0-35) H 09/14/24 08:34
Alkaline Phosphatase 299 U/L (38-126) H 09/14/24 08:34
Vital Signs and I&O:
Vital Signs
Temp Pulse Resp BP Pulse Ox
97.3 F 83 16 116/67 95
09/14/24 11:30 09/14/24 11:30 09/14/24 11:30 09/14/24 11:30 09/14/24 11:30
I&O
09/13/24 09/14/24 09/15/24
06:59 06:59 06:59
Intake Total 1979 430 / 430
Balance 1979 430 / 430
Physical Exam
Physical Exam
GI: Soft, Non Distended and Non Tender
--- NOTE | 2024-09-14 15:09 | W.DCSUMMARY ---
Discharge Summary
Discharge Data
Date of Admission: 09/10/24
Date of Discharge: 09/14/24
Total time spent discharging patient (in min): 36
-
Pending Results: Yes
Additional Pending Results:
Pathology results
Hospital Course
78 y/o female with past medical history significant for hypertension, hypothyroidism and asthma who presented for evaluation of jaundice and abnormal labs. Imaging showed pancreatic mass with possible hepatic lesions and adenopathy. Gastroenterology
was consulted. CA19-9 was ordered and oncology was consulted. Interventional radiology was consulted for ultrasound-guided liver biopsy, but they could not localize any of her small lesions for biopsy. On September 13, 2024, patient had ERCP and EUS with
foundation drill operator helper Dr. Phillips, showing malignant-appearing severe biliary stricture, biliary duct dilation, stent placement and biliary sphincterotomy were performed; EUS showed a mass in the pancreatic head -- this was staged T2 Nx Mx by
endosonographic criteria, and fine needle biopsy was performed. Patient was doing well the next day and stable for discharge.
Discharge Plan
-
Patient Disposition: Home (Routine Discharge)
Discharge Diagnosis/Procedures: Pancreatic Mass
Jaundice
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
Dilated biliary duct
Abnormal LFTs
Diffuse skin pruritus due to obstructive jaundice
Benign Hypertension
Hypothyroidism
Moderate Persistent Asthma without Acute Exacerbation
Wheezing on Physical Exam
Abdomen/Pelvis CT Results (as per radiologist's report):
'IMPRESSION:
2.7 cm mass in the pancreatic head, consistent with pancreatic adenocarcinoma. Common bile duct obstruction with marked distention of intrahepatic and extrahepatic bile ducts, common bile duct measuring up to 2.5 cm. Relatively minor main pancreatic
duct distention of approximately 3.4 mm. Intrahepatic metastatic lesions. Metastatic adenopathy. Loss of fat plane between the left lateral margin of the mass the adjacent superior mesenteric vein. There is also loss of distinct margination between
the mass and the proximal portal vein which is slightly narrowed and may be partially compressed
Possible low-grade sigmoid diverticulitis.
7 mm nonobstructing left renal calculus.'
Condition: Fair
Diet: Low Fat
Activity: As tolerated
Blood Work: CBC, CMP and Magnesium check with your primary care provider's office in 3 to 4 days
Other Services: PT
Activity Restrictions/Additional Instructions:
Follow-up [facility] pathology results with foundation drill operator helper
Follow up with oncology -- call their office to set up an appointment very soon -- you will need an outpatient biopsy of your liver lesions
Referrals:
Vivian Mueller MD [Active] - in less than 1 week (Suspected pancreatic cancer -- hospital follow-up)
Niko Phillips MD [Active] - in one to two months (Hospital follow-up)
Kiya Simms PA [Family Provider] - in less than 1 week
Norman Hanks MD [Active] - in two to three weeks (Asthma follow-up)
Additional Discharge Medication Instructions: Discuss with your primary care provider if and when you should resume your Crestor medication.
Prescriptions:
Continued
[id number] Drops,Suspension
4 drp OTIC (EAR) TIDPRN PRN (Reason: allergies)
omeprazole 40 mg Capsule,Delayed Release(Dr/Ec)
40 mg PO DAILY
levothyroxine [Synthroid] 50 mcg Tablet
50 mcg PO DAILY
losartan 25 mg Tablet
25 mg PO DAILY
therapeutic multivitamin Tablet
1 tab PO DAILY
fluticasone propion-salmeterol [Advair Diskus] 100-50 mcg/dose Blister With Device
1 inh INHALATION R BID
albuterol sulfate 90 mcg/actuation Hfa Aerosol Inhaler
2 puff INHALATION R Q6HPRN PRN (Reason: sob)
cholecalciferol (vitamin D3) [Vitamin D3] 25 mcg (1,000 unit) Tablet
25 mcg PO DAILY
coQ10 (ubiquinol) 100 mg Capsule
100 mg PO DAILY
albuterol sulfate 2.5 mg /3 mL (0.083 %) Solution For Nebulization
2.5 mg INHALATION R Q4HPRN PRN (Reason: sob)
Held
rosuvastatin [Crestor] 40 mg Tablet
40 mg PO QPM
Hold Instructions: Resume on 10/05/24. Check with your primary care physician if and when you can resume this medication.
Discharge Orders:
Discharge Patient (As Directed); Ordered 09/14/24
Ordered By: Sebastián Camara
Discharge Date and Time
Discharge Date/Time: 09/14/24 16:07
Print Language: ANDORRAN
[2024-09-14 15:30] VITALS: BP 122/86
--- NOTE | 2024-09-14 15:34 | CM ---
Patient seen at bedside with son
IMM explained & signed. In chart
No needs
PLAN: Home, no needs
son to transport
== END 2024-09-14 16:07 | disposition home or self-care (01) | DRG 436 ==
LOC: 3 WEST ACU 01:26
PROVIDERS: Internal Medicine Gastroenterology; Nurse Practitioner; Radiology Diagnostic Radiology; ADMITTING PHYSICIAN Hospitalist; ATTENDING PHYSICIAN Hospitalist; CONSULT PHYSICIAN Internal Medicine; EMERGENCY PHYSICIAN Student in an Organized Health Care Education/Training Program; FAMILY PHYSICIAN Physician Assistant; OTHER PHYSICIAN Internal Medicine Hematology & Oncology
PROC: BF101ZZ Fluoroscopy of Bile Ducts using Low Osmolar Contrast (ICD-10-PCS; 2024-09-13)
PROC: 0FBG8ZX Excision of Pancreas, Via Natural or Artificial Opening Endoscopic, Diagnostic (ICD-10-PCS; 2024-09-13)
PROC: 0F798DZ Dilation of Common Bile Duct with Intraluminal Device, Via Natural or Artificial Opening Endoscopic (ICD-10-PCS; 2024-09-13)
PROC: BF4CZZZ Ultrasonography of Hepatobiliary System, All (ICD-10-PCS; 2024-09-13)
PROC: XFJB8A7 Inspection of Hepatobiliary Duct using Single-use Duodenoscope, New Technology Group 7 (ICD-10-PCS; 2024-09-13)
DX: C25.9 Malignant neoplasm of pancreas, unspecified (principal); R17 Unspecified jaundice; L29.9 Pruritus, unspecified; I10 Essential (primary) hypertension; E03.9 Hypothyroidism, unspecified; J45.40 Moderate persistent asthma, uncomplicated; N20.0 Calculus of kidney; K21.9 Gastro-esophageal reflux disease without esophagitis; M81.0 Age-related osteoporosis without current pathological fracture; Z85.828 Personal history of other malignant neoplasm of skin; Z82.5 Family history of asthma and other chronic lower respiratory diseases; Z82.49 Family history of ischemic heart disease and other diseases of the circulatory system; Z80.8 Family history of malignant neoplasm of other organs or systems; Z80.0 Family history of malignant neoplasm of digestive organs; Z80.52 Family history of malignant neoplasm of bladder; Z79.890 Hormone replacement therapy; Z79.899 Other long term (current) drug therapy; E78.49 Other hyperlipidemia
CPT/HCPCS: 88172; 88173; 88305; 36415; 74177; 74330; 76000; 76705; 80053; 80143; 81003; 81015; 82150; 82248; 82378; 83690; 84443; 85025; 85027; 85610; 86301; 86705; 86706; 86709; 86803; 87086; 87340; 93005; 94640; 97162; 99285; C1726; C1769; C1874; C2617; Q9967

== ENCOUNTER → 2024-10-15 10:36 | Outpatient (REF) | payer MEDICARE, OTHER, SELFPAY ==
[2024-10-15] VITALS (9 sets, daily range): BP systolic 64–140; BP diastolic 71–87
[2024-10-15] MEDS: ANCEF 10 IV (11:26)
== END ==
LOC: RADI 10:36
PROVIDERS: ATTENDING PHYSICIAN Internal Medicine Hematology & Oncology; FAMILY PHYSICIAN Physician Assistant
DX: C25.0 Malignant neoplasm of head of pancreas (principal)
CPT/HCPCS: 36561; 76937; 77001; 99152; 99153; C1788

== ENCOUNTER → 2024-11-01 10:08 | Outpatient (REF) | payer MEDICARE, OTHER, SELFPAY ==
[2024-11-01 10:58] LABS: % Basophils 0.3 % (0-2); % Eosinophils 0.9 % (0-6); % Immature Granulocytes 0.3 % (0-0.5); % Neutrophils 52.5 % (42.2-75.2); Absolute Eosinophils 0.1 10^3/uL (0-0.7); Absolute Lymphocytes 2.4 10^3/uL (1.2-3.4); Absolute Monocytes 0.3 10^3/uL (0.1-0.6); Hematocrit 39.8 % (37.0-47.0); Hemoglobin 13.6 g/dL (12.0-16.0); Mean Corp Hgb Conc. 34.2 g/dL (33.0-37.0); Mean Corpuscular Hgb 28.9 pg (27.0-31.0); Mean Corpuscular Volume 84.5 fL (81.0-99.0); Mean Platelet Volume 9.5 fL (7.4-10.4); Nucleated Red Blood Cells % 0 %; Platelet Count 210 10^3/uL (130-400); Red Blood Cell Count 4.71 10^6/uL (4.20-5.40); Red Cell Dist. Width 13.1 % (11.5-14.5); White Blood Cell Count 5.8 10^3/uL (4.8-10.8)
== END ==
LOC: REG 10:08
PROVIDERS: ATTENDING PHYSICIAN Internal Medicine Hematology & Oncology; FAMILY PHYSICIAN Physician Assistant
DX: C25.0 Malignant neoplasm of head of pancreas (principal)
CPT/HCPCS: 36415; 85025

== ENCOUNTER → 2024-11-04 08:19 | Outpatient (REF) | payer MEDICARE, OTHER, SELFPAY | LOC: RAD 08:19 | PROVIDERS: ATTENDING PHYSICIAN Physician Assistant | DX: R10.9 Unspecified abdominal pain (principal) | CPT/HCPCS: 74019 ==

== ENCOUNTER → 2024-11-08 09:13 | Outpatient (REF) | payer MEDICARE, OTHER, SELFPAY ==
[2024-11-08 09:31] LABS: % Basophils 0.5 % (0-2); % Eosinophils 3.1 % (0-6); % Immature Granulocytes 0.5 % (0-0.5); % Lymphocytes 29.2 % (20.5-51.1); % Monocytes 8.6 % (1.7-9.3); % Neutrophils 58.1 % (42.2-75.2); Absolute Eosinophils 0.2 10^3/uL (0-0.7); Absolute Lymphocytes 1.9 10^3/uL (1.2-3.4); Absolute Monocytes 0.6 10^3/uL (0.1-0.6); Absolute Neutrophils 3.7 10^3/uL (1.4-6.5); Hematocrit 34.6 % (37.0-47.0); Hemoglobin 11.7 g/dL (12.0-16.0); Mean Corp Hgb Conc. 33.8 g/dL (33.0-37.0); Mean Corpuscular Hgb 28.4 pg (27.0-31.0); Mean Platelet Volume 8.7 fL (7.4-10.4); Nucleated Red Blood Cells % 0 %; Platelet Count 402 10^3/uL (130-400); Red Blood Cell Count 4.12 10^6/uL (4.20-5.40); Red Cell Dist. Width 13.4 % (11.5-14.5); White Blood Cell Count 6.4 10^3/uL (4.8-10.8)
[2024-11-08 10:11] LABS: ALT (SGPT) 30 U/L (0-35); AST (SGOT) 21 U/L (14-36); Albumin 4.1 g/dl (3.5-5.0); Alkaline Phosphatase 108 U/L (38-126); Blood Urea Nitrogen 10 mg/dl (7-17); Calcium 9.1 mg/dl (8.4-10.2); Carbon Dioxide 24 mmol/L (22-30); Chloride 105 mmol/L (98-107); Glucose 144 mg/dl (70-99); Potassium 4.2 mmol/L (3.5-5.1); Sodium 140 mmol/L (135-145); Total Bilirubin 0.4 mg/dl (0.2-1.3); Total Protein 7.2 g/dl (6.3-8.2); eGFR > 60.00
== END ==
LOC: REG 09:13
PROVIDERS: ATTENDING PHYSICIAN Internal Medicine Hematology & Oncology; FAMILY PHYSICIAN Physician Assistant
DX: C25.0 Malignant neoplasm of head of pancreas (principal)
CPT/HCPCS: 36415; 80053; 85025

== ENCOUNTER → 2024-11-15 08:50 | Outpatient (REF) | payer MEDICARE, OTHER, SELFPAY ==
[2024-11-15 09:20] LABS: Hematocrit 37.7 % (37.0-47.0); Hemoglobin 12.7 g/dL (12.0-16.0); Mean Corp Hgb Conc. 33.7 g/dL (33.0-37.0); Mean Corpuscular Volume 82.3 fL (81.0-99.0); Nucleated Red Blood Cells % 0 %; Platelet Count 459 10^3/uL (130-400); Red Cell Dist. Width 13.8 % (11.5-14.5)
[2024-11-15 10:12] LABS: AST (SGOT) 40 U/L (14-36); Albumin 4.4 g/dl (3.5-5.0); Alkaline Phosphatase 106 U/L (38-126); Blood Urea Nitrogen 13 mg/dl (7-17); Carbon Dioxide 26 mmol/L (22-30); Chloride 100 mmol/L (98-107); Glucose 173 mg/dl (70-99); Potassium 4.8 mmol/L (3.5-5.1); Sodium 134 mmol/L (135-145); Total Protein 7.7 g/dl (6.3-8.2); eGFR > 60.00
[2024-11-15 10:22] LABS: ALT (SGPT) 104 U/L (0-35); Calcium 9.7 mg/dl (8.4-10.2)
== END ==
LOC: REG 08:50
PROVIDERS: ATTENDING PHYSICIAN Internal Medicine Hematology & Oncology; FAMILY PHYSICIAN Physician Assistant
DX: C25.0 Malignant neoplasm of head of pancreas (principal)
CPT/HCPCS: 36415; 80053; 85025

== ENCOUNTER → 2024-11-19 18:15 | Outpatient (REF) | payer MEDICARE, OTHER, SELFPAY | LOC: MRI 3T 18:15 | PROVIDERS: ATTENDING PHYSICIAN Internal Medicine Hematology & Oncology; FAMILY PHYSICIAN Physician Assistant | DX: C25.0 Malignant neoplasm of head of pancreas (principal) | CPT/HCPCS: 74183; A9575 ==

== ENCOUNTER → 2024-11-22 08:09 | Outpatient (REF) | payer MEDICARE, OTHER, SELFPAY ==
[2024-11-22 08:55] LABS: Hematocrit 36.7 % (37.0-47.0); Hemoglobin 12.1 g/dL (12.0-16.0); Mean Corp Hgb Conc. 33.0 g/dL (33.0-37.0); Mean Corpuscular Volume 83.8 fL (81.0-99.0); Platelet Count 122 10^3/uL (130-400); Red Cell Dist. Width 14.3 % (11.5-14.5)
[2024-11-22 09:16] LABS: ALT (SGPT) 56 U/L (0-35); AST (SGOT) 40 U/L (14-36); Albumin 4.4 g/dl (3.5-5.0); Alkaline Phosphatase 250 U/L (38-126); Blood Urea Nitrogen 10 mg/dl (7-17); Calcium 9.6 mg/dl (8.4-10.2); Carbon Dioxide 25 mmol/L (22-30); Chloride 103 mmol/L (98-107); Glucose 163 mg/dl (70-99); Potassium 3.8 mmol/L (3.5-5.1); Sodium 138 mmol/L (135-145); Total Protein 7.5 g/dl (6.3-8.2); eGFR > 60.00
[2024-11-22 09:58] LABS: Absolute Neutrophils -Man Diff 33.8 10^3/uL (1.4-6.5); Anisocytosis Slight; Normal RBC Morphology No; Platelets Checked Yes
[2024-11-22 09:59] LABS: Ovalocytes Slight; Total Cells Counted 100
== END ==
LOC: REG 08:09
PROVIDERS: ATTENDING PHYSICIAN Internal Medicine Hematology & Oncology; FAMILY PHYSICIAN Physician Assistant
DX: C25.0 Malignant neoplasm of head of pancreas (principal); K83.1 Obstruction of bile duct
CPT/HCPCS: 36415; 80053; 85025

== ENCOUNTER → 2024-11-29 08:17 | Outpatient (REF) | payer MEDICARE, OTHER, SELFPAY ==
[2024-11-29 09:38] LABS: Hematocrit 34.2 % (37.0-47.0); Hemoglobin 11.0 g/dL (12.0-16.0); Mean Corp Hgb Conc. 32.2 g/dL (33.0-37.0); Mean Corpuscular Volume 87.2 fL (81.0-99.0); Platelet Count 339 10^3/uL (130-400); Red Cell Dist. Width 17.0 % (11.5-14.5)
[2024-11-29 09:56] LABS: ALT (SGPT) 27 U/L (0-35); AST (SGOT) 22 U/L (14-36); Albumin 4.0 g/dl (3.5-5.0); Alkaline Phosphatase 227 U/L (38-126); Blood Urea Nitrogen 10 mg/dl (7-17); Calcium 9.0 mg/dl (8.4-10.2); Carbon Dioxide 29 mmol/L (22-30); Chloride 104 mmol/L (98-107); Glucose 133 mg/dl (70-99); Potassium 4.0 mmol/L (3.5-5.1); Sodium 140 mmol/L (135-145); Total Protein 7.0 g/dl (6.3-8.2); eGFR > 60.00
[2024-11-29 11:01] LABS: Absolute Neutrophils -Man Diff 24.8 10^3/uL (1.4-6.5)
[2024-11-29 11:02] LABS: Anisocytosis 1+; Normal RBC Morphology No; Ovalocytes 1+; Platelets Checked Yes; Polychromasia Slight
[2024-11-29 11:03] LABS: Total Cells Counted 100
== END ==
LOC: REG 08:17
PROVIDERS: ATTENDING PHYSICIAN Internal Medicine Hematology & Oncology; FAMILY PHYSICIAN Physician Assistant
DX: C25.0 Malignant neoplasm of head of pancreas (principal)
CPT/HCPCS: 36415; 80053; 85025

== ENCOUNTER → 2024-12-06 08:29 | Outpatient (REF) | payer MEDICARE, OTHER, SELFPAY ==
[2024-12-06 09:31] LABS: Hematocrit 32.8 % (37.0-47.0); Hemoglobin 10.9 g/dL (12.0-16.0); Mean Corp Hgb Conc. 33.2 g/dL (33.0-37.0); Mean Corpuscular Volume 85.9 fL (81.0-99.0); Nucleated Red Blood Cells % 0 %; Platelet Count 248 10^3/uL (130-400); Red Cell Dist. Width 16.6 % (11.5-14.5)
[2024-12-06 10:14] LABS: ALT (SGPT) 100 U/L (0-35); AST (SGOT) 47 U/L (14-36); Albumin 4.3 g/dl (3.5-5.0); Alkaline Phosphatase 154 U/L (38-126); Blood Urea Nitrogen 15 mg/dl (7-17); Calcium 9.4 mg/dl (8.4-10.2); Carbon Dioxide 26 mmol/L (22-30); Chloride 100 mmol/L (98-107); Glucose 142 mg/dl (70-99); Potassium 4.5 mmol/L (3.5-5.1); Sodium 135 mmol/L (135-145); Total Protein 7.3 g/dl (6.3-8.2); eGFR > 60.00
== END ==
LOC: REG 08:29
PROVIDERS: ATTENDING PHYSICIAN Internal Medicine Hematology & Oncology; FAMILY PHYSICIAN Physician Assistant
DX: C25.0 Malignant neoplasm of head of pancreas (principal)
CPT/HCPCS: 36415; 80053; 85025

== ENCOUNTER → 2024-12-09 17:00 | Outpatient (REF) | payer MEDICARE, OTHER, SELFPAY | LOC: RAD 17:00 | PROVIDERS: ATTENDING PHYSICIAN Internal Medicine Critical Care Medicine; FAMILY PHYSICIAN Physician Assistant; REFERRING PHYSICIAN Internal Medicine Hematology & Oncology | DX: R06.02 Shortness of breath (principal); Z85.07 Personal history of malignant neoplasm of pancreas | CPT/HCPCS: 71275; Q9967 ==

== ENCOUNTER → 2024-12-13 08:07 | Outpatient (REF) | payer MEDICARE, OTHER, SELFPAY ==
[2024-12-13 09:31] LABS: Hematocrit 32.0 % (37.0-47.0); Hemoglobin 10.4 g/dL (12.0-16.0); Mean Corp Hgb Conc. 32.5 g/dL (33.0-37.0); Mean Corpuscular Volume 88.4 fL (81.0-99.0); Platelet Count 115 10^3/uL (130-400); Red Cell Dist. Width 17.7 % (11.5-14.5)
[2024-12-13 09:57] LABS: Absolute Neutrophils -Man Diff 23.4 10^3/uL (1.4-6.5); Platelets Checked Yes
[2024-12-13 09:58] LABS: Anisocytosis 1+; Hypochromasia 1+; Normal RBC Morphology No; Polychromasia 1+; Total Cells Counted 100
[2024-12-13 10:22] LABS: ALT (SGPT) 65 U/L (0-35); AST (SGOT) 33 U/L (14-36); Albumin 4.5 g/dl (3.5-5.0); Alkaline Phosphatase 223 U/L (38-126); Blood Urea Nitrogen 8 mg/dl (7-17); Calcium 9.8 mg/dl (8.4-10.2); Carbon Dioxide 27 mmol/L (22-30); Chloride 100 mmol/L (98-107); Glucose 133 mg/dl (70-99); Potassium 3.8 mmol/L (3.5-5.1); Sodium 139 mmol/L (135-145); Total Protein 7.5 g/dl (6.3-8.2); eGFR > 60.00
== END ==
LOC: REG 08:07
PROVIDERS: ATTENDING PHYSICIAN Internal Medicine Hematology & Oncology
DX: C25.0 Malignant neoplasm of head of pancreas (principal)
CPT/HCPCS: 36415; 80053; 85025

== ENCOUNTER → 2024-12-20 08:10 | Outpatient (REF) | payer MEDICARE, OTHER, SELFPAY ==
[2024-12-20 09:51] LABS: Hematocrit 33.8 % (37.0-47.0); Hemoglobin 10.8 g/dL (12.0-16.0); Mean Corp Hgb Conc. 32.0 g/dL (33.0-37.0); Mean Corpuscular Volume 91.4 fL (81.0-99.0); Platelet Count 358 10^3/uL (130-400); Red Cell Dist. Width 21.5 % (11.5-14.5)
[2024-12-20 10:18] LABS: ALT (SGPT) 32 U/L (0-35); AST (SGOT) 25 U/L (14-36); Albumin 4.3 g/dl (3.5-5.0); Alkaline Phosphatase 239 U/L (38-126); Blood Urea Nitrogen 12 mg/dl (7-17); Calcium 9.3 mg/dl (8.4-10.2); Carbon Dioxide 29 mmol/L (22-30); Chloride 104 mmol/L (98-107); Glucose 126 mg/dl (70-99); Potassium 4.9 mmol/L (3.5-5.1); Sodium 141 mmol/L (135-145); Total Protein 7.1 g/dl (6.3-8.2); eGFR > 60.00
[2024-12-20 11:16] LABS: Absolute Neutrophils -Man Diff 23.2 10^3/uL (1.4-6.5)
[2024-12-20 11:17] LABS: Anisocytosis 1+; Hypochromasia 1+; Normal RBC Morphology No; Ovalocytes 1+; Platelets Checked Yes; Polychromasia Slight; Total Cells Counted 100
== END ==
LOC: REG 08:10
PROVIDERS: ATTENDING PHYSICIAN Internal Medicine Hematology & Oncology; FAMILY PHYSICIAN Physician Assistant
DX: C25.0 Malignant neoplasm of head of pancreas (principal)
CPT/HCPCS: 36415; 80053; 85025

== ENCOUNTER → 2024-12-27 07:40 | Outpatient (REF) | payer MEDICARE, OTHER, SELFPAY ==
[2024-12-27 09:07] LABS: Hematocrit 31.4 % (37.0-47.0); Hemoglobin 10.3 g/dL (12.0-16.0); Mean Corp Hgb Conc. 32.8 g/dL (33.0-37.0); Mean Corpuscular Volume 89.5 fL (81.0-99.0); Nucleated Red Blood Cells % 0 %; Platelet Count 265 10^3/uL (130-400); Red Cell Dist. Width 20.3 % (11.5-14.5)
[2024-12-27 09:43] LABS: ALT (SGPT) 99 U/L (0-35); AST (SGOT) 48 U/L (14-36); Albumin 4.3 g/dl (3.5-5.0); Alkaline Phosphatase 131 U/L (38-126); Blood Urea Nitrogen 18 mg/dl (7-17); Calcium 9.6 mg/dl (8.4-10.2); Carbon Dioxide 27 mmol/L (22-30); Chloride 102 mmol/L (98-107); Glucose 142 mg/dl (70-99); Potassium 5.2 mmol/L (3.5-5.1); Sodium 137 mmol/L (135-145); Total Protein 7.3 g/dl (6.3-8.2); eGFR > 60.00
== END ==
LOC: REG 07:40
PROVIDERS: ATTENDING PHYSICIAN Internal Medicine Hematology & Oncology; FAMILY PHYSICIAN Physician Assistant
DX: C25.0 Malignant neoplasm of head of pancreas (principal); K83.1 Obstruction of bile duct
CPT/HCPCS: 36415; 80053; 85025

== ENCOUNTER → 2025-01-03 07:16 | Outpatient (REF) | payer MEDICARE, OTHER, SELFPAY ==
[2025-01-03 08:48] LABS: Hematocrit 30.7 % (37.0-47.0); Hemoglobin 10.0 g/dL (12.0-16.0); Mean Corp Hgb Conc. 32.6 g/dL (33.0-37.0); Mean Corpuscular Volume 90.6 fL (81.0-99.0); Platelet Count 115 10^3/uL (130-400); Red Cell Dist. Width 21.8 % (11.5-14.5)
[2025-01-03 09:17] LABS: ALT (SGPT) 61 U/L (0-35); AST (SGOT) 34 U/L (14-36); Albumin 4.4 g/dl (3.5-5.0); Alkaline Phosphatase 276 U/L (38-126); Blood Urea Nitrogen 10 mg/dl (7-17); Calcium 9.4 mg/dl (8.4-10.2); Carbon Dioxide 26 mmol/L (22-30); Chloride 101 mmol/L (98-107); Glucose 132 mg/dl (70-99); Potassium 4.0 mmol/L (3.5-5.1); Sodium 139 mmol/L (135-145); Total Protein 7.4 g/dl (6.3-8.2); eGFR > 60.00
[2025-01-03 09:28] LABS: Absolute Neutrophils -Man Diff 29.4 10^3/uL (1.4-6.5); Anisocytosis Slight; Normal RBC Morphology No; Platelets Checked Yes; Total Cells Counted 100
== END ==
LOC: REG 07:16
PROVIDERS: ATTENDING PHYSICIAN Internal Medicine Hematology & Oncology; FAMILY PHYSICIAN Physician Assistant
DX: C25.0 Malignant neoplasm of head of pancreas (principal)
CPT/HCPCS: 36415; 80053; 85025

== ENCOUNTER → 2025-01-17 07:07 | Outpatient (REF) | payer MEDICARE, OTHER, SELFPAY ==
[2025-01-17 08:13] LABS: Hematocrit 36.5 % (37.0-47.0); Hemoglobin 12.0 g/dL (12.0-16.0); Mean Corp Hgb Conc. 32.9 g/dL (33.0-37.0); Mean Corpuscular Volume 91.9 fL (81.0-99.0); Nucleated Red Blood Cells % 0 %; Platelet Count 389 10^3/uL (130-400); Red Cell Dist. Width 21.8 % (11.5-14.5)
[2025-01-17 08:36] LABS: ALT (SGPT) 36 U/L (0-35); AST (SGOT) 31 U/L (14-36); Albumin 4.5 g/dl (3.5-5.0); Alkaline Phosphatase 172 U/L (38-126); Blood Urea Nitrogen 15 mg/dl (7-17); Calcium 9.7 mg/dl (8.4-10.2); Carbon Dioxide 30 mmol/L (22-30); Chloride 100 mmol/L (98-107); Glucose 166 mg/dl (70-99); Potassium 5.0 mmol/L (3.5-5.1); Sodium 140 mmol/L (135-145); Total Protein 7.8 g/dl (6.3-8.2); eGFR > 60.00
== END ==
LOC: REG 07:07
PROVIDERS: ATTENDING PHYSICIAN Internal Medicine Hematology & Oncology; FAMILY PHYSICIAN Physician Assistant
DX: C25.0 Malignant neoplasm of head of pancreas (principal)
CPT/HCPCS: 36415; 80053; 85025

== ENCOUNTER → 2025-01-24 07:28 | Outpatient (REF) | payer MEDICARE, OTHER, SELFPAY ==
[2025-01-24 08:14] LABS: Hematocrit 30.2 % (37.0-47.0); Hemoglobin 10.0 g/dL (12.0-16.0); Mean Corp Hgb Conc. 33.1 g/dL (33.0-37.0); Mean Corpuscular Volume 90.1 fL (81.0-99.0); Nucleated Red Blood Cells % 0 %; Platelet Count 199 10^3/uL (130-400); Red Cell Dist. Width 19.6 % (11.5-14.5)
[2025-01-24 08:39] LABS: ALT (SGPT) 49 U/L (0-35); AST (SGOT) 32 U/L (14-36); Albumin 4.1 g/dl (3.5-5.0); Alkaline Phosphatase 117 U/L (38-126); Blood Urea Nitrogen 13 mg/dl (7-17); Calcium 9.4 mg/dl (8.4-10.2); Carbon Dioxide 29 mmol/L (22-30); Chloride 100 mmol/L (98-107); Glucose 162 mg/dl (70-99); Potassium 4.6 mmol/L (3.5-5.1); Sodium 136 mmol/L (135-145); Total Protein 7.2 g/dl (6.3-8.2); eGFR > 60.00
== END ==
LOC: REG 07:28
PROVIDERS: ATTENDING PHYSICIAN Internal Medicine Hematology & Oncology; FAMILY PHYSICIAN Physician Assistant
DX: C25.0 Malignant neoplasm of head of pancreas (principal)
CPT/HCPCS: 36415; 80053; 85025

== ENCOUNTER → 2025-01-31 07:24 | Outpatient (REF) | payer MEDICARE, OTHER, SELFPAY ==
[2025-01-31 08:31] LABS: ALT (SGPT) 43 U/L (0-35); AST (SGOT) 24 U/L (14-36); Albumin 4.3 g/dl (3.5-5.0); Alkaline Phosphatase 205 U/L (38-126); Blood Urea Nitrogen 12 mg/dl (7-17); Calcium 9.6 mg/dl (8.4-10.2); Carbon Dioxide 27 mmol/L (22-30); Chloride 102 mmol/L (98-107); Glucose 159 mg/dl (70-99); Potassium 4.6 mmol/L (3.5-5.1); Sodium 139 mmol/L (135-145); Total Protein 7.6 g/dl (6.3-8.2); eGFR > 60.00
[2025-01-31 09:42] LABS: Hematocrit 30.8 % (37.0-47.0); Hemoglobin 10.3 g/dL (12.0-16.0); Mean Corp Hgb Conc. 33.4 g/dL (33.0-37.0); Mean Corpuscular Volume 94.2 fL (81.0-99.0); Red Cell Dist. Width 18.4 % (11.5-14.5)
[2025-01-31 10:51] LABS: Nucleated Red Blood Cells % 0.1 %; Platelet Count 144 10^3/uL (130-400)
== END ==
LOC: REG 07:24
PROVIDERS: ATTENDING PHYSICIAN Internal Medicine Hematology & Oncology; FAMILY PHYSICIAN Physician Assistant
DX: C25.0 Malignant neoplasm of head of pancreas (principal)
CPT/HCPCS: 36415; 80053; 85025

== ENCOUNTER 2025-02-03 06:05 | Day surgery (SDC) | payer MEDICARE, OTHER, SELFPAY ==
[2025-02-03 10:12] VITALS: BMI 23.4
[2025-02-03 10:14] VITALS: BP 122/81; BMI 23.4
[2025-02-03 12:15] VITALS: BP 104/65
[2025-02-03 12:30] VITALS: BP 139/81
[2025-02-03 12:45] VITALS: BP 122/104
== END 2025-02-03 13:08 | disposition home or self-care (01) ==
LOC: SDS 06:05
PROVIDERS: ATTENDING PHYSICIAN Internal Medicine Gastroenterology
DX: C25.0 Malignant neoplasm of head of pancreas (principal); K31.5 Obstruction of duodenum; Z46.59 Encounter for fitting and adjustment of other gastrointestinal appliance and device
CPT/HCPCS: 43245; 74330; 76000; C1726

== ENCOUNTER → 2025-02-25 10:21 | Outpatient (REF) | payer MEDICARE, OTHER, SELFPAY ==
[2025-02-25 11:03] LABS: Glucose 176 mg/dl (70-99)
== END ==
LOC: PET 10:21
PROVIDERS: ATTENDING PHYSICIAN Internal Medicine Hematology & Oncology
DX: C25.0 Malignant neoplasm of head of pancreas (principal); Z79.899 Other long term (current) drug therapy
CPT/HCPCS: 36415; 82947